=== PATIENT | female | born 1995 | race Caucasian/White ===

== ENCOUNTER 2022-12-27 13:36 | Outpatient (OUT) | payer OTHER, SELFPAY ==
--- NOTE | 2022-12-27 13:37 | US_ITS ---
The [address] [address] Patient Name: JAMES SCOTT MRN: [id number] date: 1995 Sex: F Assigned Patient Location: US Current Patient Location: US Accession/Order Number: [id number] Exam Date: 12/27/2022 14:10 Report Date: 12/27/2022 19:27 At the request of: INOCENCIO COLLADO Procedure: US OB transvaginal EXAMINATION: US OB transvaginal HISTORY: Positive test COMPARISON: No relevant comparison available. FINDINGS: GESTATIONAL SAC: Present and normal appearing. YOLK SAC: Present and normal appearing. POLE: Present and normal appearing. CARDIAC: Present. UTERUS: Normal size and appearance. OVARIES: Right: Normal. Left: Normal. CERVIX: 5.5 cm in length and closed. CUL-DE-SAC: Normal. OTHER: None. AGE BY LMP: 9 weeks 0 days RON BY LMP: 08/01/2023 AGE BY US CRL: 9 weeks 4 days RON BY US CRL: 07/28/2023 US/US OB transvaginal IMPRESSION: 1. Single live intrauterine . Electronically authenticated by: TAMAR GRANT Date: 12/27/2022 19:27
== END 2022-12-27 13:37 | disposition home or self-care (01) ==
LOC: US 13:36
PROVIDERS: Visit Provider Obstetrics & Gynecology
DX: N92.5 Other specified irregular menstruation (principal); Z33.1 Pregnant state, incidental
CPT/HCPCS: 76817

== ENCOUNTER 2023-01-07 11:33 | Outpatient (OUT) | payer OTHER, SELFPAY | END 2023-01-07 11:34 | disposition home or self-care (01) | LOC: LAB 11:34 | PROVIDERS: Visit Provider Obstetrics & Gynecology | DX: Z34.80 Encounter for supervision of other normal pregnancy, unspecified trimester (principal) | CPT/HCPCS: 36415 ==

== ENCOUNTER 2023-02-20 19:38 | Outpatient (REF) | payer OTHER, SELFPAY ==
[2023-02-25 17:07] LABS: Age Gdln ACOG Testing Note (.); HPV Aptima Negative (Negative); IGP, Aptima HPV, rfx 16/18,45 Note (.)
== END 2023-02-20 19:39 | disposition home or self-care (01) ==
LOC: LAB 19:38
PROVIDERS: Visit Provider Physician Assistant
DX: Z12.4 Encounter for screening for malignant neoplasm of cervix (principal)
CPT/HCPCS: 87624; G0145

== ENCOUNTER 2023-03-20 08:40 | Outpatient (OUT) | payer OTHER, SELFPAY ==
--- NOTE | 2023-03-20 08:43 | US_ITS ---
The [address] [address] Patient Name: JAMES SCOTT MRN: [id number] date: 1995 Sex: F Assigned Patient Location: US Current Patient Location: Accession/Order Number: [id number] Exam Date: 03/20/2023 08:43 Report Date: 03/20/2023 21:05 At the request of: INOCENCIO COLLADO Procedure: US OB cervical length EXAMINATION: US OB anatomy, US OB cervical length HISTORY: ANATOMY COMPARISON: No relevant comparison available. TECHNIQUE: Transabdominal sonographic examination was performed for obstetrical and evaluation. FINDINGS: Number: 1 Heart Rate: Present Amniotic Fluid Volume: Subjectively normal Placental Location: ANTERIOR with lower margin 5.7 cm from os Cervix Length: 5 cm , closed BIOMETRY: BPD: 5.4 cm 22 weeks 4 days ; 96% HC: 19.9 cm 22 weeks 1 days; 88% AC: 17.7 cm 22 weeks 4 days; 91% FL: 3.5 cm 21 weeks 1 days ; 53% EFW:469.4 grams; 95% FL/AC: 20.0 FL/BPD: 65.2 HC/AC: 1.1 GESTATIONAL AGE: Age by EDC: 20 weeks 6 days RON by EDC: 08/01/2023 Age by current US: 22 weeks 1 days RON by current US: 07/23/2023 US/US OB cervical length IMPRESSION: 1. Single live intrauterine with growth detailed above. 2. Estimated weight is at 95th percentile. Electronically authenticated by: TAMAR GRANT Date: 03/20/2023 21:05
--- NOTE | 2023-03-20 08:43 | US_ITS ---
[address] [address] Patient Name: JAMES SCOTT MRN: [id number] date: 1995 Sex: F Assigned Patient Location: US Current Patient Location: US Accession/Order Number: [id number] Exam Date: 03/20/2023 08:44 Report Date: 03/20/2023 21:05 At the request of: INOCENCIO COLLADO Procedure: US OB anatomy EXAMINATION: US OB anatomy, US OB cervical length HISTORY: ANATOMY COMPARISON: No relevant comparison available. TECHNIQUE: Transabdominal sonographic examination was performed for obstetrical and evaluation. FINDINGS: Number: 1 Heart Rate: Present Amniotic Fluid Volume: Subjectively normal Placental Location: ANTERIOR with lower margin 5.7 cm from os Cervix Length: 5 cm , closed BIOMETRY: BPD: 5.4 cm 22 weeks 4 days ; 96% HC: 19.9 cm 22 weeks 1 days; 88% AC: 17.7 cm 22 weeks 4 days; 91% FL: 3.5 cm 21 weeks 1 days ; 53% EFW:469.4 grams; 95% FL/AC: 20.0 FL/BPD: 65.2 HC/AC: 1.1 GESTATIONAL AGE: Age by EDC: 20 weeks 6 days RON by EDC: 08/01/2023 Age by current US: 22 weeks 1 days RON by current US: 07/23/2023 US/US OB anatomy IMPRESSION: 1. Single live intrauterine with growth detailed above. 2. Estimated weight is at 95th percentile. Electronically authenticated by: TAMAR GRANT Date: 03/20/2023 21:05
--- OUTSIDE RECORDS SUMMARY | 2023-07-10 09:53 | XMS_ITS | CCD ---
Author Name Unknown Address [address] [place] [address] Organization [facility] Care Team Providers Care Cargo Broker Name Role Phone REQUEST, DR NONE LISTED Primary Care Unavaila vasquez COLLADO, DR PAINTER Attending Unavailable HEAVEN, DR PAINTER Consulting Unavailable HEAVEN, DR PAINTER Admitting Unavailable AUSTIN VEGA Attending Unavailable INOCENCIO COLLADO Attending Unavailable A[place]IN VEGA Attending Unavailable INOCENCIO COLLADO Attending Unavailable Problems Problem Classification Problem Date [...] 21 to 29on 12-07-2021 . . Normal [facility] Comment on above: Performed By: #### [id number] #### [facility] [address] [address] [address] Alaina Gardner Age Gdln ACOG Testing 19- Normal [facility] Comment on above: Performed By: #### [id number] #### [facility] [address] [place], [place] [address] Dr. Alaina Gardner DIAGNOSIS: Comment [facility] Comment on above: Result Comment: NEGATIVE FOR INTRAEPITHE LIAL LESION OR MALIGNANCY. Performed By: #### [id number] #### [facility] [address] [place] [address] Dr. Alaina Gardner Methodology: Comment Normal [facility] Comment on above: Result Comment: This liquid based ThinPr ep(R) pap test was screened with the use of an image guided system. Performed By: #### [id number] #### [facility] [address] [place] [address] Dr. Alaina Gardner Note: Comment Normal [facility] Comment on above: Result Comment: The Pap smear is a scree gerardo test designed to aid in the detection of premalignant and malignant conditions of the uterine cervix. It is not a diagnostic procedure and should not be used as the sole means of detecting cervical cancer. Both false-positive and false-negative reports do occur. . Performed By: #### [id number] #### [facility] [address] [place] [address] Dr. Alaina Gardner Performed by: Comment Normal [facility] Comment on above: Result Comment: Jax Collier totechnologist (ASCP) Performed By: #### [id number] #### [facility] [address] [place] [address] Dr. Alaina Gardner Reflex Criteria: Comment Normal [facility] Comment on above: Result Comment: The HPV DNA reflex crite antoine were not met with this specimen result therefore, no HPV testing was performed. . Performed By: #### [id number] #### [facility] [address] [place] [address] Dr. Alaina Gardner Specimen adequacy: Comment Normal [facility] Comment on above: Result Comment: Satisfactory for evaluat ion. Endocervical and/or squamous metaplastic cells (endocervical component) are present. Performed By: #### [id number] #### [facility] [address] [place] [address] Dr. Alaina Gardner Encounters Encounter Date Encounter Type Care Provider Facility Start: 06-17-2023 End: 06-17-2023 ambulatory INOCENCIO HEAVEN Not Available Start: 06-03-2023 End: 06-03-2023 ambulatory AUSTIN VEGA Not Available Start: 05-16-2023 End: 05-16-2023 ambulatory INOCENCIO HEAVEN Not Available Start: 04-17-2023 End: 04-17-2023 ambulatory AUSTIN VEGA Not Available Start: 12-05-2021 End: 12-05-[address] NONE LISTED REQUEST Facility: Payers Date Payer Category Payer Medicaid [id number] 1995 Unknown [id number] [id number] 1995 Unknown [id number] [id number] [id number] 1995 Unknown [id number] 2.16.84 [id number] 1993 Unknown [id number] 1993 Unknown [id number] 1959 Unknown [id number] Summary Purpose Family History No Family History Records FoundNo Family History Records Found Advance Directives No Advanced Directives Records FoundNo Advanced Directives Records Found Additional Source Comments INFORMATION SOURCE (unrecogn ized section and content) DATE CREATED AUTHOR 12/23/2021 [facility] DATE CREATED AUTHOR AUTHORAndie SPENCER 06/18/2023 [facility] EPIC FOR RECORDS PERTAINING [...] BE BASED ON THE PRIMARY CLINICAL RECORDS. [employer] provides no warranty or guarantee of the accuracy or completeness of information in this document.
== END 2023-03-20 08:41 | disposition home or self-care (01) ==
LOC: US 08:41
PROVIDERS: Visit Provider Obstetrics & Gynecology
DX: Z34.92 Encounter for supervision of normal pregnancy, unspecified, second trimester (principal)
CPT/HCPCS: 76805; 76817

== ENCOUNTER 2023-06-21 07:33 | Outpatient (OUT) | payer OTHER, SELFPAY ==
--- NOTE | 2023-06-21 | US_ITS ---
[address] [address] Patient Name: JAMES SCOTT MRN: [id number] date: 1995 Sex: F Assigned Patient Location: [facility] Current Patient Location: INF Accession/Order Number: [id number] Exam Date: 06/21/2023 10:40 Report Date: 06/21/2023 11:57 At the request of: INOCENCIO COLLADO Procedure: US OB growth EXAMINATION: US OB growth HISTORY: EXCESSIVE GROWTH O36.60X0 COMPARISON: No relevant comparison available. FINDINGS: Heart Rate: 132.0 bpm Amniotic Fluid Volume: 20.2 cm Number: 1.0 Position: Cephalic presentation, longitudinal lie Maximum Vertical Pocket: 9.2 cm cm 3.3 cm cm 3.7 cm cm 4.0 cm cm BIOMETRY: BPD: 9.3 cm cm; 37 weeks 6 days; >97% HC: 34.9 cmcm; 40 weeks 4 days , >97% AC: 33.8 cm cm; 37 weeks 5 days, > 97% FL: 6.6 cm cm; 34 weeks 1 days; 38.8 % % EFW: 3135.2 grams, 6 lbs. 15 oz., >97% FL/AC: 19.6 FL/BPD: 71.0 HC/AC: 1.0 GESTATIONAL AGE: Age by EDC: 34 weeks 1 days RON by EDC: 08/01/2023 Age by US: 37 weeks 4 days RON by US: 07/08/2023 US/US OB growth IMPRESSION: Large for gestational age Electronically authenticated by: BINA CAVAZOS Date: 06/21/2023 11:57
--- OUTSIDE RECORDS SUMMARY | 2023-06-21 07:36 | XMS_ITS | CCD ---
Author Name Unknown Address [address] [place] [address] [address] [place] [address] Organization [facility] Care Team Providers Care Delivery Clerk Name Role Phone REQUEST, DR NONE LISTED Primary Care Unavaila vasquez COLLADO, DR PAINTER Attending Unavailable HEAVEN, DR PAINTER Consulting Unavailable HEAVEN, DR PAINTER Admitting Unavailable AUSTIN VEGA Attending Unavailable HEAVENINOCENCIO MARTINEZ Attending Unavailable [place] Attending Unavailable HEAVENINOCENCIO MARTINEZ Attending Unavailable Problems Problem Classification Problem Date Documented Date Episodic/Chronic Immunizations and screening for infectious disease (1 source) Encounter for screening for human papillomavirus (HPV); Translations: [ENC SCREENING HUMAN PAPILLOMAVIRUS] Onset: 12-06-2021 Episodic Other screening for suspected conditions (not mental disorders or infectious disease) (4 sources) Encounter for screening for malignant neoplasm of cervix; Translations: [ENC SCREENING MALIG NEOPLASM CERV] Onset: 12-05-2021 Episodic Results Test Name Value Interpretation Reference Range Facil ity PAP ACOG PANEL 2: 21 to 29on 12-07-2021 . . Normal [facility] Comment on above: Performed By: #### [id number] #### [facility] [address] [address] [address] Alaina Gardner Age Gdln ACOG Testing 21-29 Normal [facility] Comment on above: Performed By: #### [id number] #### [facility] [address] [address] [address] Alaina Gardner DIAGNOSIS: Comment [facility] Comment on above: Result Comment: NEGATIVE FOR INTRAEPITHE LIAL LESION OR MALIGNANCY. Performed By: #### [id number] #### [facility] [address] [address] [address] Alaina Gardner Methodology: Comment Normal [facility] Comment on above: Result Comment: This liquid based ThinPr ep(R) pap test was screened with the use of an image guided system. Performed By: #### [id number] #### [facility] [address] [place] [address] Dr. Alaina Gardner Note: Comment Normal [facility] Comment on above: Result Comment: The Pap smear is a scree gerardo test designed to aid in the detection of premalignant and malignant conditions of the uterine cervix. It is not a diagnostic procedure and should not be used as the sole means of detecting cervical cancer. Both false-positive and false-negative reports do occur. . Performed By: #### [id number] #### [facility] [address] [place] [address] Dr. Alaina Gardner Performed by: Comment Normal [facility] Comment on above: Result Comment: Yoshi Lepe totechnologist (ASCP) Performed By: #### [id number] #### [facility] [address] [place] [address] Dr. Alaina Gardner Reflex Criteria: Comment Normal [facility] Comment on above: Result Comment: The HPV DNA reflex crite antoine were not met with this specimen result therefore, no HPV testing was performed. . Performed By: #### [id number] #### [facility] [address] [place] [address] Dr. Alaina Gardner Specimen adequacy: Comment Normal [facility] Comment on above: Result Comment: Satisfactory for evaluat ion. Endocervical and/or squamous metaplastic cells (endocervical component) are present. Performed By: #### [id number] #### [facility] [address] [place] [address] Dr. Alaina Gardner Encounters Encounter Date Encounter Type Care Provider Facility Start: 06-17-2023 End: 06-17-2023 ambulatory INOCENCIO COLLADO Not Available Start: 06-03-2023 End: 06-03-2023 ambulatory AUSTIN VEGA Not Available Start: 05-16-2023 End: 05-16-2023 ambulatory INOCENCIO HEAVEN Not Available Start: 04-17-2023 End: 04-17-2023 ambulatory AUSTIN VEGA Not Available Start: 12-05-2021 End: 12-05-[address] NONE LISTED REQUEST Facility: Payers Date Payer Category Payer Medicaid [id number] 1995 Unknown [id number] 2.16.84 [id number] 1995 Unknown [id number] 2.16.84 [id number] 1995 Unknown [id number] 2.16.84 [id number] 1995 Unknown [id number] [id number] 1995 Unknown [id number] 1959 Unknown [id number] Summary Purpose Family History No Family History Records FoundNo Family History Records Found Advance Directives No Advanced Directives Records FoundNo Advanced Directives Records Found Additional Source Comments INFORMATION SOURCE (unrecogn ized section and content) DATE CREATED AUTHOR 12/23/2021 [facility] DATE CREATED AUTHOR AUTHOR'S JAEL SPENCER 06/18/2023 [facility] EPIC FOR RECORDS PERTAINING TO PATIENTS WHO ARE OR HAVE BEEN ENROLLED IN A CHEMICAL DEPENDENCY/SUBSTANCEABUSE PROGRAM, SOME INFORMATION MAY BE OMITTED. This clinical summary was aggregated from multiple sources. Caution should be exercised in using it in the provision of clinical care. This summary normalizes information from multiple sources, and as a consequence, information in this document may materially change the coding, format and clinical context of patient data. In addition, data may be omitted in some cases. CLINICAL DECISIONS SHOULD BE BASED ON THE PRIMARY CLINICAL RECORDS. [employer] provides no warranty or guarantee of the accuracy or completeness of information in this document.
[2023-06-21] MEDS: RHO(D) IMMUNE GLOBULIN 1,500 UNIT SYRINGE 1500 UNIT IM (11:18)
[2023-06-21 11:25] VITALS: BP 118/77; PULSE 80; RESP 16; TEMP 36.1; O2SAT 99
--- NOTE | 2023-06-21 11:29 | PC.NURSE ---
1100: Pt. to [facility] amb. Seated in chair. Blood type verified. VSS. Denies c/o adverse reaction from past injection of rhogam. Pt. medicated with Rhophylac IM as ordered to right dorsal gluteal area. No bleeding to site. Pt. tolerated with no c/o pain. Bandaid placed over injection site prophylactically. 1125: Pt. without s&s of reaction. No bleeding to injection site. D/c'd amb. to home.
== END 2023-06-21 07:34 | disposition home or self-care (01) ==
LOC: NOMS 07:34 → INF 09:33
PROVIDERS: Visit Provider Obstetrics & Gynecology
DX: O26.893 Other specified pregnancy related conditions, third trimester (principal); Z67.91 Unspecified blood type, Rh negative; O36.60X0 Maternal care for excessive fetal growth, unspecified trimester, not applicable or unspecified; Z3A.34 34 weeks gestation of pregnancy
CPT/HCPCS: 36415; 76816; 86850; 86900; 86901; 96372; J2790

== ENCOUNTER 2023-07-02 12:53 | Inpatient (IN) | payer OTHER, SELFPAY ==
[2023-07-02] VITALS (15 sets, daily range): BP systolic 93–138; BP diastolic 52–76; PULSE 73–95; RESP 16–18; TEMP 36.2–37.3
--- OUTSIDE RECORDS SUMMARY | 2023-07-02 12:59 | XMS_ITS | CCD ---
Author Name Unknown Address [address] [place] [address] [address] [place] [address] Organization [facility] Care Team Providers Care Blueprinting Machine Operator Name Role Phone REQUEST, DR NONE LISTED Primary Care Unavaila vasquez COLLADO, DR PAINTER Attending Unavailable HEAVEN, DR PAINTER Consulting Unavailable HEAVEN, DR PAINTER Admitting Unavailable [place] Attending Unavailable EHAVENINOCENCIO MARTINEZ Attending Unavailable [place] Attending Unavailable [...] 21 to 29on 12-07-2021 . . Normal [facility] Comment on above: Performed By: #### [id number] #### [facility] [address] [address] [address] Alaina Gardner Age Gdln ACOG Testing 21-29 Normal [facility] Comment on above: Performed By: #### [id number] #### [facility] [address] [address] [address] Alaina Gardner DIAGNOSIS: Comment [facility] Comment on above: Result Comment: NEGATIVE FOR INTRAEPITHE LIAL LESION OR MALIGNANCY. Performed By: #### [id number] #### [facility] [address] [address] [address] Alaina Gardner Methodology: Comment Normal [facility] Comment on above: Result Comment: This liquid based ThinPr ep(R) pap test was screened with the use of an image guided system. Performed By: #### [id number] #### [facility] [address] [place] [address] Dr. Alaina Gardner Note: Comment Normal [facility] Comment on above: Result Comment: The Pap smear is a scree gerardo test designed to aid in the detection of premalignant and malignant conditions of the uterine cervix. It is not a diagnostic procedure and should not be used as the sole means of detecting cervical cancer. Both false-positive and false-negative reports do occur. . Performed By: #### [id number] #### [facility] [address] [place] [address] Dr. Alaina Gardner Performed by: Comment Normal [facility] Comment on above: Result Comment: Yoshi Lepe totechnologist (ASCP) Performed By: #### [id number] #### [facility] [address] [place] [address] Dr. Alaina Gardner Reflex Criteria: Comment Normal [facility] Comment on above: Result Comment: The HPV DNA reflex crite antoine were not met with this specimen result therefore, no HPV testing was performed. . Performed By: #### [id number] #### [facility] [address] [place] [address] Dr. Alaina Gardner Specimen adequacy: Comment Normal [facility] Comment on above: Result Comment: Satisfactory for evaluat ion. Endocervical and/or squamous metaplastic cells (endocervical component) are present. Performed By: #### [id number] #### [facility] [address] [place] [address] Dr. Alaina Gardner Encounters Encounter Date Encounter Type Care Provider Facility Start: 06-17-2023 End: 06-17-2023 ambulatory INOCENCIO COLLADO Not Available Start: 06-03-2023 End: 06-03-2023 ambulatory AUSTIN VEGA Not Available Start: 05-16-2023 End: 05-16-2023 ambulatory INOCENCIO HEAVEN Not Available Start: 04-17-2023 End: 04-17-2023 ambulatory AUSTIN VEGA Not Available Start: 12-05-2021 End: 12-05-[address] NONE LISTED REQUEST Facility: Payers Date Payer Category Payer Medicaid [id number] 1995 Unknown [id number] 2.16.84 [id number] 1995 Unknown [id number] 2.16.84 [id number] 1995 Unknown [id number] 2.16.84 [id number] 1995 Unknown [id number] 2.16.840 .[id number] 1995 Unknown [id number] 2.16.840 .[id number] 1959 Unknown [id number] Summary Purpose Family History No Family History Records FoundNo Family History Records Found Advance Directives No Advanced Directives Records FoundNo Advanced Directives Records Found Additional Source Comments INFORMATION SOURCE (unrecogn ized section and content) DATE CREATED AUTHOR 12/23/2021 [facility] DATE CREATED AUTHOR AUTHOR'S JAEL SPENCER 06/18/2023 [facility] EPIC FOR RECORDS PERTAINING TO [...] BE BASED ON THE PRIMARY CLINICAL RECORDS. [employer] provides no warranty or guarantee of the accuracy or completeness of information in this document.
[2023-07-02 13:38] LABS: Amnisure POSITIVE (NEGATIVE)
[2023-07-02 13:57] LABS: Bilirubin Urine SMALL (NEGATIVE); Blood Urine NEGATIVE (NEGATIVE); Clarity Urine CLEAR (CLEAR); Color Urine DK. BROWN (YELLOW); Glucose Urine UA NEGATIVE (NEGATIVE); Ketones Urine 15 mg/dL (NEGATIVE); Leukocyte Esterase Urine NEGATIVE (NEGATIVE); Nitrite Urine NEGATIVE (NEGATIVE); Protein Urine 100 mg/dL (NEG/TRACE); pH Urine 7.5 (5.0-9.0)
[2023-07-02 13:59] LABS: Urine Microscopic Indicated YES
[2023-07-02 14:08] LABS: Bacteria Urine SMALL #/HPF (NONE SEEN); Cast Seen? NONE SEEN #/LPF (NONE SEEN); Crystals Seen? None Seen #/HPF (None Seen); Mucus Urine SMALL (NONE SEEN); RBC Urine 0-2 #/HPF (0-2); Squamous Epithelial Cell Urine FEW #/LPF (NONE/RARE); Urine Culture Indicated YES; WBC Urine NONE SEEN #/HPF (NONE SEEN)
[2023-07-02] MEDS: OXYTOCIN/0.9 % SODIUM CHLORIDE 10 UNITS/500 ML PLAST..BAG 6 UNIT IV (15:00)
[2023-07-02 15:06] LABS: Hematocrit 31.8 % (36.0-48.0); Hemoglobin 10.3 g/dL (12.0-16.0); Mean Corpuscular HGB Conc 32.4 g/dL (29.9-35.2); Mean Corpuscular Hemoglobin 27.7 pg (26.7-34.0); Mean Corpuscular Volume 85.5 fL (81.0-99.0); Mean Platelet Volume 10.5 fL (9.5-13.5); Platelet Count 366 10^3/uL (150-450); Red Blood Count 3.72 10^6/uL (4.20-5.40); Red Cell Distribution Width 13.1 % (11.0-15.0); White Blood Count 12.9 10^3/uL (4.0-11.0)
[2023-07-02] MEDS: 0.9 % SODIUM CHLORIDE 1,000 ML 125 ML IV (15:11)
[2023-07-02] MEDS: AMPICILLIN SODIUM 2,000 MG in 0.9 % SODIUM CHLORIDE 100 ML 200 MG IV (15:14)
[2023-07-02 15:24] LABS: Amphetamine Screen Urine NEGATIVE (NEGATIVE); Barbiturates Screen Urine NEGATIVE (NEGATIVE); Benzodiazepines Screen Urine NEGATIVE (NEGATIVE); Buprenorphine Screen Urine NEGATIVE (NEGATIVE); Cannabinoid Screen Urine POSITIVE (NEGATIVE); Cocaine Screen Urine NEGATIVE (NEGATIVE); Methadone Screen Urine NEGATIVE (NEGATIVE); Methamphetamines Screen Urine NEGATIVE (NEGATIVE); Opiate Screen Urine NEGATIVE (NEGATIVE); Oxycodone Screen Urine NEGATIVE (NEGATIVE); Phencyclidine Screen Urine NEGATIVE (NEGATIVE); Tricyclic Antidepressant Urine NEGATIVE (NEGATIVE)
[2023-07-02] MEDS: AMPICILLIN SODIUM 1,000 MG in 0.9 % SODIUM CHLORIDE 50 ML 100 MG IV ×2 (19:18→23:02)
[2023-07-03] VITALS (57 sets, daily range): BP systolic 92–124; BP diastolic 48–75; PULSE 70–103; RESP 12–30; TEMP 36.5–37.3; O2SAT 99–100
[2023-07-03] MEDS: 0.9 % SODIUM CHLORIDE 1,000 ML 125 ML IV ×2 (00:10→09:04)
[2023-07-03] MEDS: AMPICILLIN SODIUM 1,000 MG in 0.9 % SODIUM CHLORIDE 50 ML 100 MG IV ×2 (02:58→06:53)
[2023-07-03] MEDS: OXYTOCIN/0.9 % SODIUM CHLORIDE 10 UNITS/500 ML PLAST..BAG 6 UNIT IV (07:14)
[2023-07-03] MEDS: 0.9 % SODIUM CHLORIDE 1,000 ML 1000 ML IV (11:35)
[2023-07-03] MEDS: CEFAZOLIN SODIUM/DEXTROSE,ISO 2 GM/50 ML PIGGYBACK IV ×2 (11:38→17:30)
[2023-07-03] MEDS: CITRIC ACID/SODIUM CITRATE 30 ML SOLUTION ORACIT SHOHL'S SOLN PO (11:39)
[2023-07-03] MEDS: FAMOTIDINE/PF 20 MG/2 ML VIAL IV (11:40)
[2023-07-03] MEDS: METOCLOPRAMIDE HCL 10 MG/2 ML VIAL IVP (11:40)
--- NOTE | 2023-07-03 11:53 | P.OBHP_ITS ---
OB - H&P: HPI History of Present Illness Chief complaint: OBS DELIVERY : 2 Para: 1 Date of last menstrual period: 10/25/22 Gestational age based on last menstrual period: 36wls Narrative: 27 at 35 6/7wks presented with srom, pt was started on pitocin, and iv abx, pt failed to dilate or descend, failure to progress and was unchanged from initial sve after 21hrs of pitocin History of Present Dating criteria: LMP confirmed by 1st trimester US care: good care Ultrasounds: normal 1st trimester US Labs Blood type: B (-) negative Rubella: immune RPR/VDLR: nonreactive GBS status: unknown HBsAG: negative Review of Systems ROS Status of ROS: 10 or more systems reviewed and unremarkable except as noted in history and below Meds Home Medications and Allergies Allergies Allergy/AdvReac Type Severity Reaction Status Date / Time No Known Drug Allergies Allergy Verified 07/02/23 14:01 Exam Constitutional Vital Signs, click to edit/add: Last Vital Signs Temp 98.1 F 07/03/23 11:12 Pulse 94 H 07/03/23 11:13 Resp 18 07/03/23 06:49 BP 105/52 07/03/23 11:13 Documenting provider has reviewed patient's vital signs: yes Common normals: no apparent distress Respiratory Common normals: clear to auscultation bilaterally Cardio Common normals: regular rate and regular rhythm GI Common normals: Normal to inspection, nondistended, normoactive bowel sounds present Extremity Common normals: no calf tenderness Results Labs Labs: Short CBC 07/02/23 Range/Units 14:45 WBC 12.9 H (4.0-11.0) 10^3/uL Hgb 10.3 L (12.0-16.0) g/dL Hct 31.8 L (36.0-48.0) % Plt Count 366 (150-450) 10^3/uL Urine 07/02/23 Range/Units 13:20 Urine Color Dk. brown (YELLOW) Urine Clarity Clear (CLEAR) Urine pH 7.5 (5.0-9.0) Ur Specific [place] 1.020 (1.005-1.025) Urine Protein 100 A (NEG/TRACE) mg/dL Urine Glucose (UA) Negative (NEGATIVE) mg/dL OB - A/P Assessment and Plan (1) Intrauterine : (2) SROM (spontaneous rupture of membranes): Plan iup at 36wks, srom-failure to augment, discussed options with patient, consent obtained, mmc reviewed procedure reviewed
[2023-07-03] MEDS: LACTATED RINGER'S SOLUTION 1,000 ML 50 ML IV (12:15)
--- NOTE | 2023-07-03 12:58 | P.ON_ITS ---
Brief Operative Note Date of procedure: 07/03/23 Pre-op diagnosis: iup at 36wks, srom Post-op diagnosis: same as pre-op Procedure: NAME OF PROCEDURE: [ section ] PROCEDURE: Patient was taken back to the Operating Room where she was given a spinal anesthesia with Duramorph without difficulty. She was prepped and draped in the normal sterile fashion. A Pfannenstiel skin incision was then made 2 cm above the symphysis pubis and carried down to underlying rectus fascia using a Bovie. The fascia was incised in the midline and extended laterally using Ahuja scissors. Two Donna clamps were placed on the superior aspect of the fascia and dissected off the underlying rectus muscles. The same was performed on the inferior aspect as well. The muscles were then in the midline. Peritoneum was identified and entered bluntly. The peritoneum was then extended superiorly and inferiorly with good visualization of the bladder. The bladder blade was inserted. A low transverse incision was made on the patient's uterus and extended laterally digitally. The was then delivered atraumatically after the bladder blade was removed in the cephalic position. The cord was clamped and cut. Cord blood was obtained. The was handed off to awaiting team. The patient's placenta was spontaneously delivered. The uterus was then exteriorized. The uterus was cleared of all clots and debris. The bladder blade was reinserted. The patient's uterine incision was closed using #0 Vicryl in a running lock fashion. Excellent hemostasis was assured. The uterus was then returned to the patient's abdomen. The patient's abdomen was copiously irrigated using warm saline. Peritoneal gutters were cleared of all clots and debris. Again excellent hemostasis was assured. The patient's peritoneum was closed using 3-0 Vicryl in a running fashion. The patient's fascia was closed using #0 Vicryl in a running fashion. The patient's skin was closed using 4-0 Vicryl subcuticularly. The patient tolerated the procedure well. Sponge, lap, and needle counts were correct x2. The patient was taken to the Recovery Room in stable condition. Anesthesia: spinal Surgeon: Rodrick Scales Manager Call Center: Anuradha Wang Estimated blood loss (mL): 575 Pathology: none sent Condition: stable Disposition: floor Urinary Catheter Management Urinary Catheter Management Urethral: Cath placed during this visit: yes Urethral indwelling: No Insertion date: 07/03/23 Insertion time: 12:30
--- NOTE | 2023-07-03 13:00 | P.OBPRC_ITS ---
Procedure Pre-op/Post-op diagnoses: Pre-Op/Post-Op Diagnoses Operation Date: 07/03/23 11:30 <No data on this case meets the specified criteria> Procedure: Procedures Operation Date: 07/03/23 11:30 Actual Procedure Side Surgeon p Not Applicable Rodrick Scales DO Vice President Of Contracts: Anuradha Wang Estimated blood loss (mL): 200 Disposition: floor Anesthesia type: Spinal
[2023-07-03] MEDS: BUPIVACAINE LIPOSOME/PF 266 MG/13.3 ML VIAL INJ (13:10)
[2023-07-03] MEDS: BUPIVACAINE HCL 0.5% PF 50 MG/10 ML VIAL 15 ML INJ (13:10)
[2023-07-03] MEDS: 0.9 % SODIUM CHLORIDE 10 ML VIAL 4 ML INJ (13:10)
[2023-07-03] MEDS: OXYTOCIN/0.9 % SODIUM CHLORIDE 20 UNITS/1,000 ML PLAST..BAG 125 UNIT IV (13:48)
[2023-07-03] MEDS: ACETAMINOPHEN 500 MG TABLET 1000 MG PO (18:21)
[2023-07-03] MEDS: KETOROLAC TROMETHAMINE 30 MG/ML VIAL IVP (18:21)
[2023-07-04] VITALS (7 sets, daily range): BP systolic 97–118; BP diastolic 52–73; PULSE 85–88; RESP 16–18; TEMP 36.4–36.8
[2023-07-04] MEDS: KETOROLAC TROMETHAMINE 30 MG/ML VIAL IVP (00:35)
[2023-07-04] MEDS: ENOXAPARIN SODIUM 40 MG/0.4 ML SYRINGE SUBQ ×2 (00:35→22:56)
[2023-07-04] MEDS: ACETAMINOPHEN 500 MG TABLET 1000 MG PO ×4 (00:36→18:35)
[2023-07-04 06:11] LABS: Basophils Percent Auto 0.2 % (0.2-2.0); Eosinophils Percent Auto 0.3 % (0.9-7.0); Hematocrit 28.9 % (36.0-48.0); Hemoglobin 9.1 g/dL (12.0-16.0); Immature Granulocytes Abs Auto 0.09 10^3/uL (0.00-0.03); Immature Granulocytes Pct Auto 0.6 % (0.0-0.5); Lymphocytes Absolute Auto 2.1 10^3/uL (1.2-3.8); Lymphocytes Percent Auto 15.2 % (20.5-60.0); Mean Corpuscular HGB Conc 31.5 g/dL (29.9-35.2); Mean Corpuscular Hemoglobin 27.6 pg (26.7-34.0); Mean Corpuscular Volume 87.6 fL (81.0-99.0); Mean Platelet Volume 10.7 fL (9.5-13.5); Monocytes Percent Auto 7.1 % (1.7-12.0); Neutrophils Absolute Auto 10.7 10^3/uL (1.4-6.5); Neutrophils Percent Auto 76.6 % (43.0-75.0); Platelet Count 316 10^3/uL (150-450); Red Cell Distribution Width 13.4 % (11.0-15.0)
--- NOTE | 2023-07-04 07:22 | PM.OBPN ---
OB - PN: Subj Subjective Patient comments: no complaints [place] status: doing well [place] feeding status: exclusively Exam Constitutional Vital Signs, click to edit/add: Last Vital Signs Temp 98.0 F 07/04/23 04:54 Pulse 72 07/03/23 20:31 Resp 16 07/03/23 18:27 BP 118/73 07/04/23 04:54 Pulse Ox 100 07/03/23 17:30 O2 Del Method Room Air 07/04/23 04:54 Documenting provider has reviewed patient's vital signs: yes Common normals: no apparent distress General appearance: cooperative, comfortable, well kempt and well developed HENMT Common normals: normocephalic Eye Common normals: EOMs intact bilaterally General eye: normal appearance of both eyes Alignment: alignment normal Neck & C-Spine Common normals: full ROM General: normal visual inspection Lymph Lymphatic: no lymphadenopathy noted Respiratory Common normals: normal respiratory effort Effort & inspection: able to speak in complete sentences Auscultation: clear to auscultation bilaterally Cardio Common normals: regular rate and regular rhythm Rate: regular rate Rhythm: regular rhythm GI Common normals: Normal to inspection, nondistended, normoactive bowel sounds present and soft to palpation Auscultation: normoactive bowel sounds Palpation: soft Common normals: no CVA tenderness Back & Pelvis Common normals: no CVA tenderness Extremity Common normals: normal to inspection and full ROM Neuro Common normals: oriented x3 Psych Attitude: calm Thought process: normal thought process Results Labs Labs: Short CBC 07/04/23 Range/Units 05:56 WBC 14.0 H (4.0-11.0) 10^3/uL Hgb 9.1 L (12.0-16.0) g/dL Hct 28.9 L (36.0-48.0) % Plt Count 316 (150-450) 10^3/uL Urinary Catheter Management Urinary Catheter Management Urethral: Cath placed during this visit: yes Urethral indwelling: No Insertion date: 07/03/23 Insertion time: 12:30 OB - PN: A/P Assessment and Plan (1) Intrauterine : (2) SROM (spontaneous rupture of membranes): Plan - day: 1 Plan: routine postop care Comment: patient c/o itching, small reddened rash across abdomen above incisional dressing. Benadryl ordered and requested per patient Time Spent with Patient Time: Total time spent is greater than 50% in coordination of care (as documented) at patient's floor/unit and/or counseling patient: Total time spent with greater than 50% in coordination of care (as documented) at patient's floor/unit and/or counseling patient: less than 15 minutes
[2023-07-04] MEDS: IBUPROFEN 400 MG TABLET 800 MG PO ×2 (08:19→16:48)
[2023-07-04] MEDS: DOCUSATE SODIUM 100 MG CAPSULE PO ×2 (08:19→22:57)
[2023-07-05] MEDS: IBUPROFEN 400 MG TABLET 800 MG PO (02:36)
[2023-07-05] MEDS: ACETAMINOPHEN 500 MG TABLET 1000 MG PO (02:37)
[2023-07-05 08:30] VITALS: BP 139/58; PULSE 101; RESP 16; TEMP 36.7
[2023-07-05 08:31] VITALS: BP 139/58; PULSE 101
[2023-07-05] MEDS: DOCUSATE SODIUM 100 MG CAPSULE PO (08:34)
--- NOTE | 2023-07-05 08:36 | PC.NURSE ---
LC into dicuss feeding plan, pumping and easy milk fo rbaby. Pt states I am working the plan States baby is doing well with latching and continues to hear swallows. Plans to follow up 07/10/2023 at 1245 as planned with LC.
--- NOTE | 2023-07-05 09:03 | PM.OBPN ---
OB - PN: Subj Subjective Patient comments: no complaints and pain well controlled [place] status: doing well Exam Constitutional Vital Signs, click to edit/add: Last Vital Signs Temp 97.5 F L 07/04/23 23:52 Pulse 101 H 07/05/23 08:31 Resp 18 07/04/23 23:55 BP 139/58 07/05/23 08:31 Pulse Ox 100 07/03/23 17:30 O2 Del Method Room Air 07/04/23 23:55 Documenting provider has reviewed patient's vital signs: yes Common normals: no apparent distress Respiratory Common normals: normal respiratory effort and clear to auscultation bilaterally Cardio Common normals: regular rate and regular rhythm GI Common normals: Normal to inspection, nondistended, normoactive bowel sounds present Extremity Common normals: no clubbing, cyanosis or edema and no calf tenderness Urinary Catheter Management Urinary Catheter Management Urethral: Cath placed during this visit: yes Urethral indwelling: No Insertion date: 07/03/23 Insertion time: 12:30 OB - PN: A/P Assessment and Plan (1) Intrauterine : (2) SROM (spontaneous rupture of membranes): Plan - day: 1 Plan: routine postop care, discharge home and other (fu 1wk) Time Spent with Patient Time: Total time spent is greater than 50% in coordination of care (as documented) at patient's floor/unit and/or counseling patient: Total time spent with greater than 50% in coordination of care (as documented) at patient's floor/unit and/or counseling patient: less than 15 minutes
--- NOTE | 2023-07-05 14:13 | SWNOTE1 ---
IMAN consulted due to positive THC drug screen, anxiety, and 1 year sober of alcohol. Pt and baby are doing well. Pt's mother in room as well. Pt has everything she needs at home for baby. She has a 2 1/2 year old son as well. Pt is breast feeding and voiced it is going well. Pt has good support at home with family. Father of baby is in the home as well. Pt did use marijuana and she does not plan on continuing use when she is at home. She does not have medical marijuana card. Pt was using marijuana for anxiety, nausea, and vomiting. Pt does go to counseling. She goes to meets in [place] and Bindu is the head of [facility]. This is where she attends counseling. 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 She attends AA meetings as well. Pt and pt's mother appropriate with baby. IMAN let pt know due to [employer] Law SW is mandated reported and has to make report to CPS. IMAN advised if they open a case they will contact pt directly. Pt voiced understanding, no questions. IMAN filled out HIPPA form and sent to [facility]. IMAN made referral to [facility] CPS.
[2023-07-06 22:06] LABS: Cannabinoid Positive (.); Carboxy THC Conf, MS, UR >750 ng/mL (Cutoff=10)
--- NOTE | 2023-07-15 | DS_ITS ---
DISCHARGE DATE: 07/15/2023 PRIMARY DIAGNOSES: 1. Intrauterine at 36 weeks. 2. Spontaneous rupture of membranes. PROCEDURE: section. HOSPITAL COURSE: As expected. Please see chart for full details. LABORATORY DATA: Please see chart. COMPLICATIONS: None. DISCHARGE CONDITION: Stable. CONSULTATION: Anesthesia. DISCHARGE INSTRUCTIONS: 1. Diet: Regular. 2. Medications: a. Percocet 5/325 one to two p.o. every 4-6 hours p.r.n. pain. b. Motrin 800 one p.o. every 8 hours p.r.n. pain. 3. Followup in one week. Restrictions: Pelvic rest for 6 weeks. No heavy lifting. May drive when pain free and no longer on narcotics. MTDD
== END 2023-07-05 11:30 | disposition home or self-care (01) | DRG 540 ==
PROVIDERS: Admitting Provider Obstetrics & Gynecology; Visit Provider Obstetrics & Gynecology
PROC: 10D00Z1 Extraction of Products of Conception, Low, Open Approach (ICD-10-PCS; CPT 59514; principal; 2023-07-03 11:30)
DX: O42.913 Preterm premature rupture of membranes, unspecified as to length of time between rupture and onset of labor, third trimester (principal); Z37.0 Single live birth; O32.4XX0 Maternal care for high head at term, not applicable or unspecified; O62.0 Primary inadequate contractions; Z3A.36 36 weeks gestation of pregnancy; O99.324 Drug use complicating childbirth; F12.90 Cannabis use, unspecified, uncomplicated; O26.893 Other specified pregnancy related conditions, third trimester; Z67.21 Type B blood, Rh negative
CPT/HCPCS: 36415; 59050; 80307; 80349; 81001; 84112; 85025; 85027; 86850; 86900; 86901; 87086; 94667; 94668; 96365; 96366; 96368; 96372; 96375; 96376; J0131; J0290; J0665; J0690; J1100; J1650; J1885; J2274; J2371; J2405; J2590; J2765

== ENCOUNTER 2024-12-09 15:03 | Outpatient (REF) | payer OTHER, SELFPAY ==
--- OUTSIDE RECORDS SUMMARY | 2024-06-25 05:15 | XMS_ITS ---
Author Organization [facility] vices Address [address] [place] [phone] Care Team Providers Care Remote Inpatient Coder Name Role Phone Renae Watters Unavailable [phone] REASON FOR VISIT Rest #31-OB #27-ML Social History Sex Assigned At : Social History Observation Description Sex Assigned At Female Encounters Encounter Location Date Provider Diagnosis [facility] [address] [place] [address] [phone] 06/25/2024 Renae Watters Plan Of Treatment Next Appt Details Provider Name:Renae epstein, 01/26/2025 09:30:00 AM, [address] [place] [address], [phone], Progress Notes * Angi SCOTTDOB: [birth year] (29 yo F)Acc No.[id number]:06/25/2024 Patient: Shayy ESTRADAAngi Provider: Malena Watters DDS :1995 A ge:29 Y S ex:Female Date:06/25/2024 Address:[address] [place] [id number] Check In:08:57 AM EST Subjective: * Chief Complaints: * 1 . Rest #31-OB #27-ML. * Medical History: Objective: * Vitals: Assessment: Plan: * Treatment: * Billing Information: * Visit Code: * Procedure Codes: * Electronic signature of Madisyn Watters DDS on 12/09/2024 at 03:07 PM EDT Sign off status: Pending * Provider: Malena Watters DDS Date: 0 06/25/2024 Generated for Saida nobles/Eduard/Sherie on: 0 12/09/2024 03:07 PM EDT
--- OUTSIDE RECORDS SUMMARY | 2024-11-05 10:30 | XMS_ITS | Encounter Summary ---
Author Organization [facility] tem Address [id number] [address] [place] [address] Care Team Providers Care Weather Stripper Name Role Phone Nemo Benjamin APRN-ARIANNA Primary Care Provide r Reason for Visit * Reason Comments Annual Exam Encounter Details Date Type Department Care Team (Late st Contact Info) Description 11/05/2024 10:30 AM EDT Office Visit [facility] [address] [place] [id number] Nemo Benjamin APRN-CNP [address] [place] [address] Wellness examination (Primary Dx); Anxiety; Gastroesophageal reflux disease, unspecified whether esophagitis present; Migraine without aura and without status migrainosus, not intractable; Iron deficiency Social History Tobacco Use Types Packs/Day Years Used Date Smoking Tobacco: Every Day Cigarettes 0.5 6 Smokeless Tobacco: Never Comments:Smokes 5 cigarettes a day Alcohol Use Standard Drinks/Week Comments Not Currently 0 (1 standard drink = 0.6 oz pur e alcohol) former Social Connection and Isolat ion Panel [NHANES] Answer Date Recorded In a typical week, how many times do you talk on the phone with family, friends, or neighbors? More than three times a week 06/12/2021 How often do you get togethe r with friends or relatives? Once a week 06/12/2021 How often do you attend [facility] or yarsanism services? Patient declined 06/12/2021 Do you belong to any clubs o r organizations such as faith groups, unions, fraternal or athletic groups, or school groups? No 06/12/2021 How often do you attend meet ings of the clubs or organizations you belong to? Patient declined 06/12/2021 Are you , , di vorced, , never , or living with a partner? Living with partner 06/12/2021 AUDIT-C Answer Date Recorded Q1: How often do you have a drink containing alc ohol? Monthly or less 06/12/2021 Q2: How many drinks containi ng alcohol do you have on a typical day when you are drinking? 1 or 2 06/12/2021 Q3: How often do you have si x or more drinks on one occasion? Never 06/12/2021 Overall Financial Resource Strain (CARDIA) Answe r Date Recorded How hard is it for you to pa y for the very basics like food, housing, medical care, and heating? Somewhat hard 04/28/2024 PHQ-2 Answer Date Recorded Total Score 0 11/05/2024 [facility] - Occupational Stress Questionnaire Answer Date Recorded Do you feel stress - tense, restless, nervous, or anxious, or unable to sleep at night because your mind is troubled all the time - these days? Rather much 06/12/2021 Exercise Vital Sign Answer Date Recorde d On average, how many days pe r week do you engage in moderate to strenuous exercise (like a brisk walk)? 3 days 06/12/2021 On average, how many minutes do you engage in exercise at this level? 150+ min 06/12/2021 PRAPARE - Transportation Answer Date Re corded In the past 12 months, has l ack of transportation kept you from medical appointments or from getting medications? No 07/2023 In the past 12 months, has l ack of transportation kept you from meetings, work, or from getting things needed for daily living? No 04/28/2024 Housing Instability Answer Date Recorde d Are you worried or concerned that in the next two months you may not have stable housing that you own, rent or stay in as a part of a household? No 04/28/2024 Childcare Answer Date Recorded Do problems getting child ca re make it difficult for you to work or study? No 06/12/2021 Employment Answer Date Recorded Do you need help finding a l ocal career center and/or a training program? No 06/12/2021 Hunger Screening Answer Date Recorded Within the past 12 months we worried whether our food would run out before we got money to buy more. Never True 11/05/2024 Within the past 12 months th e food we bought just didn't last and we didn't have money to get more. Never True 11/05/2024 Purpose - Life Answer Date Recorded I have a purpose and direction in my life. Stron gly Agree 06/12/2021 Education Answer Date Recorded What is the highest level of school you have completed or the highest degree you have received? 12th grade 06/12/2021 Comments No Sex and Gender Information Value Date Recorded Sex Assigned at Not on file Legal Sex Female 11:51 AM EDT Gender Identity Not on file Sexual Orientation Not on file documented as of this encounter Last Filed Vital Signs Vital Sign Reading Time Taken Comments Blood Pressure 122/74 11/05/2024 10:25 AM EDT Pulse 77 11/05/2024 10:25 AM EDT Temperature - - Respiratory Rate 16 11/05/2024 10:25 AM EDT Oxygen Saturation 98% 11/05/2024 10:25 AM EDT Inhaled Oxygen Concentration - - Weight 67.6 kg (149 lb) 11/05/2024 10:25 AM EDT Height 165.1 cm (5' 5 ) 11/05/2024 10:25 AM EDT Body Mass Index 24.79 11/05/2024 10:25 AM EDT documented in this encounter Patient Instructions * Attachments The following attachments cannot be sent through Care Everywhere. * Routine physical for adults (German) documented in this encounter Progress Notes * Nemo Benjamin APRN-ARIANNA - 11/05/2024 10:30 AM EDT Images from the original note were not included. [address] [facility] [id number] Subjective: Angi Marshall is a 29 y.o. female who presents for an Annual Wellness exam. Patient presents to the office for routine wellness. She is still having stress. She is going to double the celexa to 40mg daily. She is back to work., Annual Exam Pertinent negatives include no abdominal pain, arthralgias, chest pain, congestion, coughing, fatigue, fever, joint swelling, nausea, neck pain, numbness, rash, sore throat, vomiting or weakness. The following portions of the patient's history were reviewed and updated as appropriate: medications, allergies, past medical history, past surgical history, social history, family history and immunization history Vitals: Vitals: 11/05/24 1025 BP: 122/74 Pulse: 77 Resp: 16 SpO2: 98% Weight: 67.6 kg (149 lb) Height: 165.1 cm (5' 5 ) History: Patient Active Problem List Diagnosis Date Noted Polyp of sigmoid colon 09/05/2022 Rh negative state in antepartum period 11/18/2019 Other constipation 11/18/2019 Ptyalism 11/18/2019 Smoking (tobacco) complicating , first trimester 11/05/2019 Past Medical History: Diagnosis Date Anxiety Depression High school - no meds Desmoid fibromatosis Meningitis 6 yo Migraines Elementary school Visual impairment Past Surgical History: Procedure Laterality Date COLONOSCOPY N/A 09/05/2022 Performed by Jeff Sepulveda DO at [facility] WISDOM TOOTH EXTRACTION Family History Problem Relation Age of Onset Thyroid disease Mother Cancer Father Diabetes Maternal Grandmother Breast cancer Maternal Grandmother Dementia Paternal Grandmother No Known Problems Paternal Grandfather Brain cancer Maternal Aunt Cancer Maternal Aunt long history of cancer Breast cancer Paternal Aunt 46 No Known Problems Half Sister No Known Problems Half Sister Diabetes Half Brother 12 Kidney disease Half Brother No Known Problems Half Brother No Known Problems Half Brother Colon cancer Neg Hx Ovarian cancer Neg Hx Uterine cancer Neg Hx Social History Tobacco Use Smoking status: Every Day Current packs/day: 0.50 Average packs/day: 0.5 packs/day for 6.0 years (3.0 ttl pk-yrs) Types: Cigarettes Smokeless tobacco: Never Tobacco comments: Smokes 5 cigarettes a day Substance Use Topics Alcohol use: Not Currently Comment: former Allergies: No Known Allergies Immunization History Administered Date(s) Administered DTP 1993, 1993, 1993, 11/20/2020 DTaP, Unspecified 06/25/1994, 09/03/1997 H1N1 Nasal 05/05/2009 HPV Quadrivalent 10/27/2007 Hep B, Adolescent or Pediatric 1993, 1993, 1993 HiB 1993, 1993, 1993, 06/25/1994 MMR 06/25/1994, 09/03/1997 OPV 1993, 1993, 1993, 09/03/1997 Tdap 11/08/2017 Review of Systems: Review of Systems Constitutional: Negative for fatigue, fever and unexpected weight change. HENT: Negative for congestion, ear pain, sinus pressure, sinus pain and sore throat. Eyes: Negative for photophobia, pain, discharge and visual disturbance. Respiratory: Negative for cough and shortness of breath. Cardiovascular: Negative for chest pain, palpitations and leg swelling. Gastrointestinal: Negative for abdominal pain, diarrhea, nausea and vomiting. Endocrine: Negative for polydipsia, polyphagia and polyuria. Genitourinary: Negative for difficulty urinating, frequency, hematuria and urgency. Musculoskeletal: Negative for arthralgias, gait problem, joint swelling and neck pain. Skin: Negative for pallor and rash. Neurological: Negative for dizziness, weakness, light-headedness and numbness. Psychiatric/Behavioral: Positive for sleep disturbance. The patient is nervous/anxious. Objective: BP 122/74 Pulse 77 Resp 16 Ht 165.1 cm (5' 5 ) Wt 67.6 kg (149 lb) SpO2 98% BMI 24.79 kg/m² Physical Exam Constitutional: Appearance: She is well-developed. HENT: Head: Normocephalic and atraumatic. Right Ear: External ear normal. Left Ear: External ear normal. Eyes: Conjunctiva/sclera: Conjunctivae normal. Pupils: Pupils are equal, round, and reactive to light. Cardiovascular: Rate and Rhythm: Normal rate and regular rhythm. Heart sounds: Normal heart sounds. Pulmonary: Effort: Pulmonary effort is normal. Breath sounds: Normal breath sounds. Musculoskeletal: Cervical back: Normal range of motion. Skin: General: Skin is warm and dry. Neurological: Mental Status: She is alert and oriented to person, place, and time. Psychiatric: Mood and Affect: Mood normal. Assessment/Plan: Angi was seen today for annual exam. Diagnoses and all orders for this visit: Wellness examination - CBC auto differential; Future - Comprehensive metabolic panel; Future - Lipid profile; Future Anxiety Gastroesophageal reflux disease, unspecified whether esophagitis present Migraine without aura and without status migrainosus, not intractable Iron deficiency - Iron and TIBC; Future - Ferritin; Future Other orders - famotidine (PEPCID) 40 mg tablet; Take 1 tablet (40 mg total) by mouth in the morning and 1 tablet (40 mg total) before bedtime. Plan Outpatient Medications Prior to Visit Medication Sig Dispense Refill citalopram (CeleXA) 20 mg tablet TAKE 1 TABLET (20 MG TOTAL) BY MOUTH IN THE MORNING 90 tablet 1 famotidine (PEPCID) 40 mg tablet Take 1 tablet (40 mg total) by mouth in the morning and 1 tablet (40 mg total) before bedtime. 60 tablet 5 No facility-administered medications prior to visit. Follow Up: Cbc,cmp,lipid,iron studies Increase celexa Follow up in six months SIA Sarabia 11/05/24 1038 documented in this encounter Miscellaneous Notes * Addendum Note - Juan Carlos Paul MD - 11/05/2024 10:30 AM EDTAddended by: JUAN CARLOS PAUL on: 11/25/2024 08:15 AM Modules accepted: Orders documented in this encounter Plan of Treatment Upcoming Encounters Date Type Department Care Team (Late st Contact Info) Description 05/07/2025 10:30 AM EST Office Visit [facility] [address] [place] [address] Nemo Benjamin APRN-CNP [address] [place] [address] documented as of this encounter Results * Ferritin (11/24/2024 12:26 PM EDT) [facility] FERRITIN 16 11 - 307 ng/mL 11/24/2024 7:46 PM EDT [facility] Blood Venous blood / Unknown Venipuncture / Unknown 11/24/2024 12:26 PM EDT 11/24/2024 12:26 PM EDT Nemo Benjamin APRN-FORESTRY FIRE AIDE LAB BLOOD ORDERABLES Final Result [facility] [address] [place] [address], [place] [phone] * (ABNORMAL) Iron and TIBC (11/24/2024 12:26 PM EDT) IRON 50 50 - 170 ug/dL 11/24/2024 7:31 PM EDT [facility] TRANSFERRIN 283 168 - 336 mg/dL 11/24/2024 7:31 PM EDT [facility] IRON BINDING 396 250 - 425 ug/dL 11/24/2024 7:31 PM EDT [facility] IRON SATURATION 13(L) 15 - 50 % SATURATION 11/24/2024 7:31 PM EDT [facility] Blood Venous blood / Unknown Venipuncture / Unknown 11/24/2024 12:26 PM EDT 11/24/2024 12:26 PM EDT Nemo Benjamin APRN-[facility] LAB BLOOD ORDERABLES Final Result [facility] [address] [place] [address], [place] [phone] * (ABNORMAL) Lipid profile (11/24/2024 12:26 PM EDT) CHOLESTEROL 121(L) 150 - 200 mg/dL 11/24/2024 7:31 PM EDT [facility] TRIGLYCERIDE 73 27 - 150 mg/dL 11/24/2024 7:31 PM EDT [facility] HDL CHOLESTEROL 62 >39 mg/dL 7:31 PM EDT [facility] Comment: HDL <40 mg/dL - High Risk HDL > or = 40mg/dL- Desirable HDL >60 mg/dL - Negative Risk LDL (CALC) 44 <130 mg/dL 11/24/2024 7:31 PM EDT [facility] Comment: LDL <100 mg/dL - Desirable LDL >160 mg/dL - High Risk CHOLESTEROL:HDL 2.0 1.0 - 5.0 7:31 PM EDT [facility] VERY LOW LIPOPROTEIN 15 0 - 30 mg/dL 11/24/2024 7:31 PM EDT [facility] Blood Venous blood / Unknown Venipuncture / Unknown 11/24/2024 12:26 PM EDT 11/24/2024 12:26 PM EDT us Nemo Benjamin FINISHED CIGAR MAKER-FORESTRY FIRE AIDE LAB BLOOD ORDERABLES Final Result [facility] [address] [place] [address], * Comprehensive metabolic panel (11/24/2024 12:26 PM EDT) SODIUM 140 134 - 146 mmol/L 11/24/2024 7:31 PM EDT [facility] POTASSIUM 4.3 3.5 - 5.0 mmol/L 11/24/2024 7:31 PM EDT [facility] CHLORIDE 106 98 - 109 mmol/L 11/24/2024 7:31 PM EDT [facility] CARBON DIOXIDE 26 22 - 32 mmol/L 11/24/2024 7:31 PM EDT [facility] ANION GAP 8 5 - 15 mmol/L 11/24/2024 7:31 PM EDT [facility] BLOOD UREA NITROGEN 7 5 - 23 mg/dL 11/24/2024 7:31 PM EDT [facility] CREATININE 0.90 0.40 - 1.00 mg/dL 11/24/2024 7:31 PM EDT [facility] Comment:METHOD TRACEABLE TO IDMS STANDARD GLUCOSE 78 65 - 99 mg/dL 11/24/2024 7:31 PM EDT [facility] CALCIUM 8.8 8.5 - 10.5 mg/dL 11/24/2024 7:31 PM EDT [facility] TOTAL PROTEIN 6.1 6.0 - 8.0 g/dL 11/24/2024 7:31 PM EDT [facility] ALBUMIN 4.1 3.2 - 5.3 g/dL 11/24/2024 7:31 PM EDT [facility] ALKALINE PHOSPHATASE 57 39 - 130 U/L 11/24/2024 7:31 PM EDT [facility] AST 15 <=41 U/L 11/24/2024 7:31 PM EDT [facility] ALT 11 <=31 U/L 11/24/2024 7:31 PM EDT [facility] BILIRUBIN,TOTAL 0.5 0.3 - 1.2 mg/dL 11/24/2024 7:31 PM EDT [facility] EGFR Non-Race Dependent 88 >=60 ml/min/1.7 3sq.m 11/24/2024 7:31 PM EDT [facility] Comment: Reported eGFR is based on the CKD-EPI 2020 equation that does not use a race coefficient. Blood Venous blood / Unknown Venipuncture / Unknown 11/24/2024 12:26 PM EDT 11/24/2024 12:26 PM EDT us Nemo Benjamin FINISHED CIGAR MAKER-FORESTRY FIRE AIDE LAB BLOOD ORDERABLES Final Result [facility] [address] [place] [address], [place] [phone] * CBC auto differential (11/24/2024 12:26 PM EDT) WBC 6.5 4 - 11 x10E9/L 11/24/2024 6:44 PM EDT [facility] RBC Count 4.64 3.8 - 5.2 X10E12/L 11/24/2024 6:44 PM EDT [facility] Hemoglobin 13.7 11.7 - 15.5 g/dL 11/24/2024 6:44 PM EDT [facility] Hematocrit 41.6 35 - 47 % 11/24/2024 6:44 PM EDT [facility] MCV 90 80 - 100 fL 11/24/2024 6:44 PM EDT [facility] MCH 29.5 27 - 34 pg 11/24/2024 6:44 PM EDT [facility] MCHC 33.0 32 - 36 g/dL 11/24/2024 6:44 PM EDT [facility] RDW 13.3 11.5 - 15 % 11/24/2024 6:44 PM EDT [facility] Platelet Count 365 150 - 450 X10E9/L 11/24/2024 6:44 PM EDT [facility] MPV 8.5 7 - 12 fL 11/24/2024 6:44 PM EDT [facility] Neutrophils % 54.2 % 11/24/2024 6:44 PM EDT [facility] Lymphocytes % 37.7 % 11/24/2024 6:44 PM EDT [facility] Monocytes % 5.5 % 11/24/2024 6:44 PM EDT [facility] Eosinophils % 1.7 % 11/24/2024 6:44 PM EDT [facility] Basophils % 0.9 % 11/24/2024 6:44 PM EDT [facility] Neutrophils Absolute (A) 3.5 1.5 - 6.6 10*3/uL 11/24/2024 6:44 PM EDT [facility] Lymphocytes Absolute 2.4 1.0 - 3.5 10*3/uL 11/24/2024 6:44 PM EDT [facility] Monocytes Absolute 0.4 0.0 - 0.9 10*3/uL 11/24/2024 6:44 PM EDT [facility] Eosinophils Absolute 0.1 0.0 - 0.4 10*3/uL 11/24/2024 6:44 PM EDT [facility] Basophils Absolute 0.1 0.0 - 0.2 10*3/uL 11/24/2024 6:44 PM EDT [facility] Differential Type AUTOMATED DIFFERENTIAL 11/24/2024 6:44 PM EDT [facility] Blood Venous blood / Unknown Venipuncture / Unknown 11/24/2024 12:26 PM EDT 11/24/2024 12:26 PM EDT us Nemo GIBBS LAB BLOOD ORDERABLES Final Result [facility] [address] [place] [address], documented in this encounter Visit Diagnoses Diagnosis Wellness examination- Primary Anxiety Anxiety state, unspecified Gastroesophageal reflux disease, unspecified whether esophagitis present Migraine without aura and without status migrainosus, not intractable Iron deficiency Disorders of iron metabolism documented in this encounter Additional Health Concerns Assessment Noted Time PHQ-9 Depression Total Score: 0 11/06/19 10:24 AM EDT A Body Mass Index follow-up plan has been documented for the patient 02/19/2024 2:15 PM EDT documented as of this encounter Care Teams Weather Stripper Relationship Specialty Start Date End Date Nemo Benjamin APRN-CNP [address] [place] [address] PCP - General Family Medicine 02/08/21 documented as of this encounter
--- OUTSIDE RECORDS SUMMARY | 2024-12-09 11:00 | XMS_ITS | Encounter Summary ---
Author Organization [facility] Address [address] [place] [address] Care Team Providers Care Electric Stove Installer Name Role Phone Jonathan Cornejo MD Primary Care Provider + [phone] Rodrick Scales DO Unavailable Reason for Visit * Reason Comments Well Women Visit Encounter Details Date Type Department Care Team ([facility] st Contact Info) Description 12/09/2024 11:00 AM EDT Office Visit [facility] [address] [place] [id number] Ijeoma [place] PA [address] [place], [facility] Well woman exam with routine gynecological exam; Menorrhagia with regular cycle Social History Tobacco Use Types Packs/Day Years Used Date Smoking Tobacco: Never Assessed Comments No Sex and Gender Information Value Date Recorded Sex Assigned at Not on file Legal Sex Female 7:12 PM EDT Gender Identity Not on file Sexual Orientation Not on file documented as of this encounter Last Filed Vital Signs Vital Sign Reading Time Taken Comments Blood Pressure 110/76 12/09/2024 11:20 AM EDT Pulse - - Temperature - - Respiratory Rate - - Oxygen Saturation - - Inhaled Oxygen Concentration - - Weight 68.3 kg (150 lb 8 oz) 12/09/2024 11:20 AM EDT Height 166.4 cm (5' 5.5 ) 12/09/2024 11:20 AM ED T Body Mass Index 24.66 12/09/2024 11:20 AM EDT documented in this encounter Progress Notes * DAVIDA Zuleta - 12/09/2024 11:00 AM EDT Reason for Appointment: Patient ID: Angi Marshall is a 29 y.o. female who presents for Well Women Visit Patient presents today for Annual Exam. MEDICATIONS No current outpatient medications ALLERGIES No Known Allergies PROBLEMS Active Ambulatory Problems Diagnosis Date Noted No Active Ambulatory Problems Resolved Ambulatory Problems Diagnosis Date Noted No Resolved Ambulatory Problems Past Medical History: Diagnosis Date Cellulitis Choroid plexus cyst Frequent headaches Marijuana use HISTORY PAST MEDICAL HISTORY SOCIAL HISTORY Past Medical History: Diagnosis Date Cellulitis Choroid plexus cyst Frequent headaches Marijuana use Social History Tobacco Use Smoking status: Not on file Smokeless tobacco: Not on file Substance Use Topics Alcohol use: Not on file Drug use: Not on file FAMILY HISTORY Family History Problem Relation Name Age of Onset Heart disease Brother Diabetes Maternal Grandmother Diabetes Sibling SURGICAL HISTORY Past Surgical History: Procedure Laterality Date SECTION, CLASSIC 07/02/2023 CT GUIDED CRYOABLATION BONE 09/21/2022 CT GUIDED CRYOABLATION BONE 09/21/2022 PAP SMEAR 2020 US GUIDED PERCUTANEOUS PLACEMENT 06/18/2022 US GUIDED PERCUTANEOUS PLACEMENT 06/18/2022 REVIEW OF SYSTEMS Review of Systems: Review of Systems Constitutional: Negative. HENT: Negative. Eyes: Negative. Respiratory: Negative. Cardiovascular: Negative. Gastrointestinal: Negative. Genitourinary: Negative. Musculoskeletal: Negative. Skin: Negative. Neurological: Negative. All other systems reviewed and are negative. Hematological: Negative. Endocrine: Negative. Allergic/Immunologic: Negative. OBJECTIVE Objective: Physical Exam Constitutional: Appearance: Normal appearance. Genitourinary: Right Adnexa: not tender and no mass present. Left Adnexa: not tender and no mass present. No cervical discharge. Breasts: Breasts are soft. Right: Normal. Left: Normal. HENT: Head: Normocephalic. Nose: Nose normal. Mouth/Throat: Mouth: Mucous membranes are moist. Cardiovascular: Rate and Rhythm: Normal rate. Pulmonary: Effort: Pulmonary effort is normal. Abdominal: General: Bowel sounds are normal. Palpations: Abdomen is soft. Musculoskeletal: General: Normal range of motion. Cervical back: Normal range of motion. Neurological: General: No focal deficit present. Mental Status: She is alert. Skin: General: Skin is warm and dry. Psychiatric: Mood and Affect: Mood normal. Vitals and nursing note reviewed. Exam conducted with a lending manager present. Vitals: Estimated body mass index is 24.66 kg/m² as calculated from the following: Height as of this encounter: 5' 5.5 . Weight as of this encounter: 150 lb 8 oz. BP: 110/76 Patient's last menstrual period was 12/06/2024 (approximate). ASSESSMENT & PLAN ICD-10-CM 1. Well woman exam with routine gynecological exam Z01.419 Pap Smear HPV DNA probe, amplified 2. Menorrhagia with regular cycle N92.0 US Pelvis w/ TV Annual Exam: Patient presents today for an annual exam. Patient states she is doing well and has no complaints. Pap was obtained without difficulty. Orders Placed This Encounter Procedures HPV DNA probe, amplified US Pelvis w/ TV Follow Up: Patient is to return in one year for annual unless needed otherwise. Documented by DAVIDA Zuleta on behalf of: DAVIDA Zuleta documented in this encounter Plan of Treatment Upcoming Encounters Date Type Department Care Team (Late st Contact Info) Description 12/13/2025 11:00 AM EDT Procedure Visit [facility] [address] [place] [id number] Ijeoma [place] PA [address] [place] [address] Scheduled Orders Name Type Priority Associated Diagnoses Orde r Schedule Pap Smear Pathology and Cytology Routine Well woman exam with routine gynecological exam Ordered: 12/09/2024 HPV DNA probe, amplified Microbiology Routine Well woman exam with routine gynecological exam Ordered: 12/09/2024 US Pelvis w/ TV Imaging Routine Menorrhagia with regular cycle Expected: 12/09/2024, Expires: 06/11/2025 documented as of this encounter Visit Diagnoses Diagnosis Well woman exam with routine gynecological exam Routine gynecological examination Menorrhagia with regular cycle documented in this encounter Care Teams Electric Stove Installer Relationship Specialty Start Date End Date Jonathan Cornejo MD PCP - General Family Medicine 04/04/23 Rodrick Scales DO [address] [place] [address] [place] [address] PCP - [facility] 11/25/23 documented as of this encounter
--- OUTSIDE RECORDS SUMMARY | 2024-12-09 15:06 | XMS_ITS | Encounter Summary ---
Author Organization [employer] s tem Address [id number] [address] [place] [address] Care Team Providers Care Slag Skimmer Name Role Phone Nemo Benjamin APRN-INTERPRETER TRANSLATOR Primary Care Provide r Encounter Details Date Type Department Care Team (Late st Contact Info) Description 07/27/2022 Orders Only [facility] [address] [place] [address] Mukund Long DO [address] [place] [address] Social History Tobacco Use Types Packs/Day Years Used Date Smoking Tobacco: Every Day Cigarettes Smokeless Tobacco: Never Comments:Smokes 5 cigarettes a day Alcohol Use Standard Drinks/Week Comments Not Currently 0 (1 standard drink = 0.6 oz pur e alcohol) social Social Connection and Isolat ion Panel [NHANES] Answer Date Recorded In a typical week, how many times do you talk on the phone with family, friends, or neighbors? More than three times a week 06/12/2021 How often do you get togethe r with friends or relatives? Once a week 06/12/2021 How often do you attend chur ch or adventist services? Patient declined 06/12/2021 Do you belong to any clubs o r organizations such as spiritism groups, unions, fraternal or athletic groups, or [...] like food, housing, medical care, and heating? Not hard at all 06/12/2021 PHQ-2 Answer Date Recorded Total Score 0 04/30/2022 [facility] [place] of Occupat ional Health - Occupational Stress [...] medical appointments or from getting medications? No 05/27 In the past 12 months, has l ack of transportation kept you from meetings, work, or from getting things needed for daily living? No 06/12/2021 Childcare Answer Date Recorded Do problems getting child ca re make it difficult for you to work or study? No 06/12/2021 Employment Answer Date Recorded Do you need help finding a l ocal career center and/or a training program? No 06/12/2021 Purpose - Life Answer Date Recorded I have a purpose and direction in my life. Semaj moore Agree 06/12/2021 Education Answer Date Recorded What is the highest level of school you have completed or the highest degree you have received? 12th grade 06/12/2021 Comments No Sex and Gender Information Value Date Recorded Sex Assigned at Not on file Legal Sex Female 11:51 AM EDT Gender Identity Not on file Sexual Orientation Not on file COVID-19 Exposure Response Date Recorded In the last month, have you been in contact with someone who was confirmed or suspected to have Coronavirus / COVID-19? No / Unsure 07/27/2022 10:45 AM EST documented as of this encounter Plan of Treatment Upcoming Encounters Date Type Department Care Team (Late st Contact Info) Description 05/07/2025 10:30 AM EST Office Visit [facility] [address] [place] [address] Nemo Benjamin APRN-CNP [address] [place] [address] documented as of this encounter Visit Diagnoses Not on filedocumented in this encounter Additional Health Concerns Assessment Noted Time PHQ-9 Depression Total Score: 0 04/30/20 22 3:24 PM EST A Body Mass Index follow-up plan has been documented for the patient 06/26/2022 2:54 PM EST documented as of this encounter Care Teams Slag Skimmer Relationship Specialty Start Date End Date Nemo Benjamin APRN-INTERPRETER TRANSLATOR [address] [place], [place] [id number] PCP - General Family Medicine 02/08/21 documented as of this encounter
--- OUTSIDE RECORDS SUMMARY | 2024-12-09 15:06 | XMS_ITS | Encounter Summary ---
Author Organization [facility] [employer] [facility] tem Address [id number] [address] [place] [address] Care Team Providers Care Stuffing Machine Operator Name Role Phone Nemo Benjamin APRN-HEAD USHER Primary Care Provide r Encounter Details Date Type Department Care Team (Late st Contact Info) Description 06/11/2022 Telephone [facility] Imaging [address] [place] [address] Kaylee Perez, IRASEMA Social History Tobacco Use Types Packs/Day Years Used Date Smoking Tobacco: Every Day Cigarettes 0.3 6 Smokeless Tobacco: Never Alcohol Use Standard Drinks/Week Comments Yes 0 (1 standard drink = 0.6 oz [...] 06/12/2021 How often do you attend chur or uatsdin services? Patient declined 06/12/2021 Do you belong to any clubs o r organizations such as taoist groups, unions, fraternal or athletic groups, or [...] Answer Date Recorded Total Score 0 04/30/2022 [facility] [place] of Occupat ional Health - Occupational Stress [...] Recorded Do you need help finding a [place] career center and/or a training program? No [...] have Coronavirus / COVID-19? No / Unsure 06/11/2022 9:10 AM EST documented as of this encounter Plan of Treatment Upcoming Encounters Date Type Department Care Team (Late st Contact Info) Description 05/07/2025 10:30 AM EST Office Visit [facility] [address] [place] [phone] Nemo Benjamin APRN-CNP [address] [place] [address] documented as of this encounter Visit Diagnoses Not on filedocumented in this encounter Additional Health Concerns Assessment Noted Time PHQ-9 Depression Total Score: 0 04/30/20 22 3:24 PM EST A Body Mass Index follow-up plan has been documented for the patient 04/30/2022 4:19 PM EST documented as of this encounter Care Teams Stuffing Machine Operator Relationship Specialty Start Date End Date Nemo Benjamin APRN-CNP [address] [place] [address] PCP - General Family Medicine 02/08/21 documented as of this encounter
--- OUTSIDE RECORDS SUMMARY | 2024-12-09 15:06 | XMS_ITS | Encounter Summary ---
Author Organization [employer] [facility] tem Address [facility] [id number] [address] [place] [address] Care Team Providers Care Sewing Pattern Layout Technician Name Role Phone Nemo Benjamin APRN-ARIANNA Primary Care Provide r Encounter Details Date Type Department Care Team (Late st Contact Info) Description 08/14/2022 Orders Only [facility] - Family Medicine [address] [place] [address] Jeff Sepulveda, [address] [place] [address] Desmoid fibromatosis (Primary Dx) Social History Tobacco Use Types Packs/Day Years [...] often do you attend chur ch or adventism services? Patient declined 06/12/2021 Do you belong to any clubs o r organizations such as yazdanism groups, unions, fraternal or athletic groups, or [...] PHQ-2 Answer Date Recorded Total Score 0 08/13/2022 [facility] of Occupat ional Health - Occupational Stress [...] Recorded Do you need help finding a [facility] career center and/or a training program? No 06/12/2021 Hunger Screening Answer Date Recorded Within the past 12 months we worried whether our food would run out before we got money to buy more. Never True 08/06/2022 Within the past 12 months th e food we bought just didn't last and we didn't have money to get more. Never True 08/06/2022 Purpose - Life Answer Date Recorded I [...] have Coronavirus / COVID-19? No / Unsure 08/13/2022 3:41 PM EDT documented as of this encounter Plan of Treatment Upcoming Encounters Date Type Department Care Team (Late st Contact Info) Description 05/07/2025 10:30 AM EST Office Visit [facility] [address] [place] [phone] Nemo Benjamin APRN-CNP [address] [place] [address] documented as of this encounter Visit Diagnoses Diagnosis Desmoid fibromatosis- Primary documented in this encounter Additional Health Concerns Assessment Noted Time PHQ-9 Depression Total Score: 0 08/14/19 23 3:46 PM EDT A Body Mass Index follow-up plan has been documented for the patient 06/26/2022 2:54 PM EST documented as of this encounter Care Teams Sewing Pattern Layout Technician Relationship Specialty Start Date End Date Nemo Benjamin APRN-CNP [address] [place] [address] PCP - General Family Medicine 02/08/21 documented as of this encounter
--- OUTSIDE RECORDS SUMMARY | 2024-12-09 15:06 | XMS_ITS | Clinical Summary ---
Author Organization [facility] Healthcare Address [address] [place] [address] Care Team Providers Care Bridge Game Director Name Role Phone Jonathan Cornejo MD Primary Care Provider + [phone] Rodrick Scales DO Unavailable Allergies No known active allergies Medications Vit-Fe Fumarate-FA ( 19) 29-1 MG chewable tablet TAKE 1 CHEW BY MOUTH IN THE MORNING. 3 12/10/19 25 Discontinued Hospital, Clinic, or Other Facility Administered Medication Ordered Dose Route Frequency Start Date End Date Status etonogestrel-eluting 68 mg contraceptive implant 1 eachIndications:Insertion of Nexplanon 1 each [place] Continuous 08/14/2023 08/13/2026 Active Encounters Date Type Department Care Team Description 12/09/2024 11:00 AM EDT Office Visit [facility] [address] [place] [address] Ijeoma Montana PA Well woman exam with routine gynecological exam; Menorrhagia with regular cycle 12/09/2024 Bamboo flowsheet [facility] [address] [place] [address] Ijeoma [place] PA 10/28/2024 Travel from Last 3 Months Family History Medical History Relation Name Comments Heart disease Brother Diabetes Maternal Grandmother Diabetes Sibling Relation Name Status Comments Brother Maternal Grandmother Sibling Social History Tobacco Use Types Packs/Day Years Used Date Smoking Tobacco: Never Assessed Comments No Sex and Gender Information Value Date Recorded Sex Assigned at Not on file Legal Sex Female 7:12 PM EDT Gender Identity Not on file Sexual Orientation Not on file Last Filed Vital Signs Vital Sign Reading [...] Mass Index 24.66 12/09/2024 11:20 AM EDT Plan of Treatment Upcoming Encounters Date Type Department Care Team (Late st Contact Info) Description 12/13/2025 11:00 AM EDT Procedure Visit [facility] [address] [place] [address] Ijeoma Montana PA [address] [place] [address] Health Maintenance Due Date Last Done Comments Influenza Vaccine (#1) 2025 Cervical Cancer Screening 02/21/2028 Pap Smear 02/21/2028 2023 HPV/Cotest 03/01/2028 03/01/2023 Procedures Procedure Name Priority Date/Time Associated Diagnosis Comments THINPREP PAP AND HPV MRNA E6/E7 W/RFL HPV 16,18/45 Routine 03/01/2023 8:56 AM EDT Well woman exam with routine gynecological exam PAP SMEAR Routine 2023 12:00 AM EDT from Last 3 Months or Most Recently Relevant to Health Maintenance Results * THINPREP PAP AND HPV MRNA E6/E7 W/RFL HPV 16,18/45 (03/01/2023 8:56 AM EDT) Rodrick Loyda DO LAB BLOOD ORDERABLES Final Resul t EXTERNAL LAB * Pap Smear (2023 12:00 AM EDT) Swab Cervical swab / Unknown Rodrick Loyda DO LAB CYTOLOGY ORDERABLES Final Re sult EXTERNAL LAB from Last 3 Months or Most Recently Relevant to Health Maintenance Insurance [employer] Care Teams Bridge Game Director Relationship Specialty Start Date End Date Jonathan Cornejo MD PCP - General Family Medicine 04/04/23 Rodrick Scales DO [address] [place] [address] [place] [address] PCP - [facility] 11/25/23
--- OUTSIDE RECORDS SUMMARY | 2024-12-09 15:06 | XMS_ITS | Encounter Summary ---
Author Organization [facility] tem Address [id number] [address] [place] [address] Care Team Providers Care Human Resources Safety Manager Name Role Phone Nemo Benjamin APRN-ARIANNA Primary Care Provide r Encounter Details Date Type Department Care Team (Late st Contact Info) Description 08/14/2022 Telephone [facility] - Family Medicine [address] [place] [phone] Nany William CMA Social History Tobacco Use Types Packs/Day Years [...] How often do you attend chur or jehovah's witness services? Patient declined 06/12/2021 Do you belong to any clubs o r organizations such as confucianist groups, unions, fraternal or athletic groups, or [...] Answer Date Recorded Total Score 0 08/13/2022 [facility] [place] of Occupat ional Health - Occupational Stress [...] Recorded Do you need help finding a [employer] career center and/or a training program? 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 Please send her [facility] to [facility]. documented in this encounter Plan of Treatment Upcoming Encounters Date Type Department Care Team (Late st Contact Info) Description 05/07/2025 10:30 AM EST Office Visit [facility] [address] [place] [address] Nemo Benjamin APRN-CNP [address] [place] [address] documented as of this encounter Visit Diagnoses Not on filedocumented in this encounter Additional Health Concerns Assessment Noted Time PHQ-9 Depression Total Score: 0 08/14/19 23 3:46 PM EDT A Body Mass Index follow-up plan has been documented for the patient 06/26/2022 2:54 PM EST documented as of this encounter Care Teams Human Resources Safety Manager Relationship Specialty Start Date End Date Nemo Benjamin APRN-CNP [address] [place], [place] [phone] PCP - General Family Medicine 02/08/21 documented as of this encounter
--- OUTSIDE RECORDS SUMMARY | 2024-12-09 15:07 | XMS_ITS | Encounter Summary ---
Author Organization [facility] Address [address] [place] [address] Care Team Providers Care Seed Core Operator Name Role Phone Jonathan Cornejo MD Primary Care Provider + [phone] Inocencio Scales DO Unavailable Encounter Details Date Type Department Care Team (Late st Contact Info) Description 03/20/2023 Clinisync Result Encounter [facility] External Department Unsolicited Inocencio Scales DO [address], [facility] Social History Tobacco Use Types Packs/Day Years Used Date Smoking Tobacco: Never Assessed Comments Yes Sex and Gender Information Value Date Recorded Sex Assigned at Not on file Legal Sex Female 7:12 PM EDT Gender Identity Not on file Sexual Orientation Not on file documented as of this encounter Plan of Treatment Upcoming Encounters Date Type Department Care Team ([facility] Contact Info) Description 12/13/2025 11:00 AM EDT Procedure Visit [facility] [address] [place] [phone] Ijeoma Montana PA [address] [place], [facility] documented as of this encounter Procedures Procedure Name Priority Date/Time Associated Diagnosis Comments US OB CERVICAL LENGTH 03/20/2023 9:05 PM EDT documented in this encounter Results * US OB CERVICAL LENGTH (03/20/2023 9:05 PM EDT) Anatomical Region Laterality Modality Other 03/20/2023 9:05 PM EDT Narrative 03/20/2023 9:05 PM EDT [address] [address] Ultrasound Report Signed Patient: JAMES SCOTT MR#: [id number] : 1995 Acct:[id number] Age/Sex: 28 / F ADM Date: 03/20/23 Loc: US Attending Dr: Inocencio Scales D.O. Ordering Physician: Inocencio Scales D.O. Date of Service: 03/20/23 Procedure(s): US OB cervical length Accession Number(s): [id number] cc: Inocencio Scales D.O.; Physician,Non-Staff Ila [address] [address] Patient Name: JAMES SCOTT MRN: [id number] date: 1995 Sex: F Assigned Patient Location: US Current Patient Location: US Accession/Order Number: [id number] Exam Date: 03/20/2023 08:43 Report Date: 03/20/2023 21:05 At the request of: INOCENCIO SCALES Procedure: US OB cervical length EXAMINATION: US OB anatomy, US OB cervical length HISTORY: ANATOMY COMPARISON: No relevant comparison available. TECHNIQUE: Transabdominal sonographic examination was performed for obstetrical and evaluation. FINDINGS: Number: 1 Heart Rate: Present Amniotic Fluid Volume: Subjectively normal Placental Location: ANTERIOR with lower margin 5.7 cm from os Cervix Length: 5 cm , closed BIOMETRY: BPD: 5.4 cm 22 weeks 4 days ; 96% HC: 19.9 cm 22 weeks 1 days; 88% AC: 17.7 cm 22 weeks 4 days; 91% FL: 3.5 cm 21 weeks 1 days ; 53% EFW:469.4 grams; 95% FL/AC: 20.0 FL/BPD: 65.2 HC/AC: 1.1 GESTATIONAL AGE: Age by EDC: 20 weeks 6 days RON by EDC: 08/01/2023 Age by current US: 22 weeks 1 days RON by current US: 07/23/2023 US/US OB cervical length IMPRESSION: 1. Single live intrauterine with growth detailed above. 2. Estimated weight is at 95th percentile. Electronically authenticated by: TAMAR HEREDIA Date: 03/20/2023 21:05 Dictated By: Tamar Heredia M.D. Signed By: 03/20/232107 DD/ 04 TD/TT: Credit Risk Specialist: Procedure Note Radiology, Radiologist, MD - 03/20/2023 [place] [address] Ultrasound Report Signed Patient: JAMES SCOTT JMR#: [id number] : 1995Acct:[id number] Age/Sex: 28 / FADM Date: 03/20/23 Loc: US Attending Dr: Inocencio Scales D.O. Ordering Physician: Inocencio Scales D.O. Date of Service: 03/20/23 Procedure(s): US OB cervical length Accession Number(s): [id number] cc: Inocencio Scales D.O.; Physician,Non-Staff Ila [facility] [place] [id number] Patient Name: JAMES SCOTT MRN: [id number] date: 1995 Sex: F Assigned Patient Location: Current Patient Location: US Accession/Order Number: [id number] Exam Date: 03/20/2023 08:43 Report Date: 03/20/2023 21:05 At the request of: INOCENCIO SCALES Procedure: US OB cervical length EXAMINATION: US OB anatomy, US OB cervical length HISTORY: ANATOMY COMPARISON: No relevant comparison available. TECHNIQUE: Transabdominal sonographic examination was performed for obstetrical and evaluation. FINDINGS: Number: 1 Heart Rate: Present Amniotic Fluid Volume: Subjectively normal Placental Location: ANTERIOR with lower margin 5.7 cm from os Cervix Length: 5 cm , closed BIOMETRY: BPD: 5.4 cm 22 weeks 4 days ; 96% HC: 19.9 cm 22 weeks 1 days; 88% AC: 17.7 cm 22 weeks 4 days; 91% FL: 3.5 cm 21 weeks 1 days ; 53% EFW:469.4 grams; 95% FL/AC: 20.0 FL/BPD: 65.2 HC/AC: 1.1 GESTATIONAL AGE: Age by EDC: 20 weeks 6 days RON by EDC: 08/01/2023 Age by current US: 22 weeks 1 days RON by current US: 07/23/2023 US/US OB cervical length IMPRESSION: 1. Single live intrauterine with growth detailed above. 2. Estimated weight is at 95th percentile. Electronically authenticated by: TAMAR HEREDIA Date: 03/20/2023 21:05 Dictated By: Tamar Heredia M.D. Signed By:03/20/232107 DD/ 04 TD/TT: Credit Risk Specialist: us Inocencio Scales DO [facility] Final Result documented in this encounter Visit Diagnoses Not on filedocumented in this encounter Care Teams Seed Core Operator Relationship Specialty Start Date End Date Jonathan Cornejo MD PCP - General Family Medicine 04/04/23 Inocencio Scales DO [address] [place] [address] [place] [address] PCP - [facility] 11/25/23 documented as of this encounter
--- OUTSIDE RECORDS SUMMARY | 2024-12-09 15:07 | XMS_ITS | Encounter Summary ---
Author Organization [facility] Address [address] [facility] [place] [address] Care Team Providers Care Procedures Nurse Name Role Phone Jonathan Cornejo MD Primary Care Provider [phone] Rodrick Scales DO Unavailable Encounter Details Date Type Department Care Team ([facility] Contact Info) Description 07/05/2023 Abstract [facility] [address] [facility] [place] [address] Rodrick Scales DO [address] [facility] [address] [place], [facility] [...] Upcoming Encounters Date Type Department Care Team ([facility] Contact Info) Description 12/13/2025 11:00 AM EDT Procedure Visit [facility] [address] [place] [address] Ijeoma Montana PA [address] [place] [address] documented as of this encounter Visit Diagnoses Not on filedocumented in this encounter Care Teams Procedures Nurse Relationship Specialty Start Date End Date Jonathan Cornejo MD PCP - General Family Medicine 04/04/23 Rodrick Scales DO [address] [place], [facility] PCP - [facility] 11/25/23 documented as of this encounter
--- OUTSIDE RECORDS SUMMARY | 2024-12-09 15:07 | XMS_ITS | Encounter Summary ---
Author Organization [employer] s tem Address [facility] [id number] [address] [place] [address] Care Team Providers Care Industrial Ecologist Name Role Phone Nemo Benjamin Primary Care Provide r Encounter Details Date Type Department Care Team (Late st Contact Info) Description 11/29/2022 Telephone [facility] [address] [place] [address] Anita Rico CMA Social History Tobacco Use Types Packs/Day [...] often do you attend chur ch or caodaism services? Patient declined 06/12/2021 Do you belong to any clubs o r organizations such as mormon groups, unions, fraternal or athletic groups, or [...] Answer Date Recorded Total Score 0 08/13/2022 [facility] of Occupat ional Health - Occupational Stress [...] Recorded Do you need help finding a [facility] career center and/or a training program? No [...] on file documented as of this encounter Miscellaneous Notes * Telephone Encounter - Anita Rico CMA - 11/29/2022 9:25 AM EDT Headache for 5 days just found out she was but does not see gyno till december was wonderingif you could do anything or recommend something since she is . Please advise * Telephone Encounter - SAI Sarabia - 11/29/2022 9:25 AM EDT She can take tylenol * Telephone Encounter - Anita Rico CMA - 11/29/2022 9:25 AM EDT I called patient and let her know to take tylenol, she mentioned she has stopped cold turkey her 40mg celexa. She did take her dose this morning, should she stop taking it all together or wean off of it. * Telephone Encounter - SAI Sarabia - 11/29/2022 9:25 AM EDT She should wean herself off of the medication, she can go down to 20mg for one week, then every three days, for one week then every other day for one week then stop documented in this encounter Plan of Treatment Upcoming Encounters Date Type Department Care Team (Late st Contact Info) Description 05/07/2025 10:30 AM EST Office Visit [facility] [address] [place] [address] Nemo Benjamin APRN-CNP [address] [place] [address] documented as of this encounter Visit Diagnoses Not on filedocumented in this encounter Additional Health Concerns Assessment Noted Time PHQ-9 Depression Total Score: 0 08/14/19 3:46 PM EDT A Body Mass Index follow-up plan has been documented for the patient 11/12/2022 3:21 PM EDT documented as of this encounter Care Teams Industrial Ecologist Relationship Specialty Start Date End Date Nemo Benjamin APRN-CNP [address] [place] [address] PCP - General Family Medicine 02/08/21 documented as of this encounter
--- OUTSIDE RECORDS SUMMARY | 2024-12-09 15:07 | XMS_ITS | Clinical Summary ---
Author Organization [facility] Address [id number] [address] [place] [address] Care Team Providers Care English Faculty Member Name Role Phone Nemo Benjamin APRN-PROCUREMENT INTERNSHIP Primary Care Provide r Allergies No known active allergies Medications citalopram (CeleXA) 20 mg tablet TAKE 1 TABLET (20 MG TOTAL) BY MOUTH IN THE MORNING 90 tablet 1 09/04/2024 Active famotidine (PEPCID) 40 mg tablet Take 1 tablet (40 mg total) by mouth in the morning and 1 tablet (40 mg total) before bedtime. 60 tablet 5 11/05/2024 Active ferrous sulfate 325 (65 FE) MG tabletIndicatio ns:Iron deficiency Take 1 tablet (325 mg total) by mouth before bedtime. 30 tablet 3 11/25/2024 Active Active Problems Problem Noted Date Diagnosed Date Polyp of sigmoid colon 09/05/2022 Rh negative state in antepartum period 0 Other constipation 11/18/2019 Ptyalism 11/18/2019 Smoking (tobacco) complicating , first trimester 11/05/2019 Overview (11/05/2019): Decreased to 3 cigs/day. Wants to quit completely. Referral placed to [facility] smoking cessation program. Risks of smoking during discussed. 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 Encounters Date Type Department Care Team Description 11/24/2024 Travel 11/05/2024 10:30 AM EDT Office Visit [facility] [address] [place] [id number] Nemo Benjamin APRN-CNP Wellness examination (Primary Dx); Anxiety; Gastroesophageal reflux disease, unspecified whether esophagitis present; Migraine without aura and without status migrainosus, not intractable; Iron deficiency 11/05/2024 Travel from Last 3 Months Immunizations Immunization Administration Dates Next Due DTP 11/20/2020,1993,1993 ,1993 DTaP, Unspecified 09/03/1997,06/25/1994 H1N1 Nasal 05/05/2009 HPV Quadrivalent 10/27/2007 Hep B, Adolescent or Pediatric 1993,1992,1993 HiB 06/25/1994,1993,1993 ,1993 MMR 09/03/1997,06/25/1994 OPV 09/03/1997,1993,1993 ,1993 Tdap 11/08/2017 Family History Medical History Relation Name Comments Cancer Father Diabetes Half Brother 1 Ney Kidney disease Half Brother 2 Jaaron No Known Problems Half Brother 3 Jona No Known Problems Half Brother 4 Warren No Known Problems Half Sister 1 No Known Problems Half Sister 2 Brain cancer Maternal Aunt Cancer Maternal Aunt long history o f cancer Breast cancer Maternal Grandmother Diabetes Maternal Grandmother Thyroid disease Mother Breast cancer Paternal Aunt No Known Problems Paternal Grandfather Dementia Paternal Grandmother Colon cancer Neg Hx Ovarian cancer Neg Hx Uterine cancer Neg Hx Relation Name Status Comments Father Alive Half Brother 1 Ney Alive Half Brother 2 Jaaron Alive Half Brother 3 Jona Alive Half Brother 4 Warren Alive Half Sister 1 Alive Half Sister 2 Alive Maternal Aunt Alive Maternal Grandfather no contact Maternal Grandmother Alive Mother Alive Paternal Aunt Alive Paternal Grandfather Alive Paternal Grandmother Alive Social History Tobacco Use Types Packs/Day Years Used Date Smoking Tobacco: Every Day Cigarettes 0.5 6 Smokeless Tobacco: Never Tobacco Cessation:Ready to Q uit: Not Asked; Counseling Given: Not Answered Comments:Smokes 5 cigarettes a day Alcohol Use [...] often do you attend chur ch or pentecostal services? Patient declined 06/12/2021 Do you belong to any clubs o r organizations such as baptism groups, [employer], [employer] or athletic groups, or school groups? No [...] Answer Date Recorded Total Score 0 11/05/2024 [facility] - Occupational Stress Questionnaire Answer Date Recorded [...] Recorded Do you need help finding a [facility] career center and/or a training program? No [...] Pulse 77 11/05/2024 10:25 AM EDT Temperature 36.6 C (97.9 F) 09/05/2022 9:20 AM EDT Respiratory Rate 16 11/05/2024 10:25 AM EDT Oxygen Saturation 98% 11/05/2024 10:25 AM EDT Inhaled Oxygen Concentration - - Weight 67.6 kg (149 lb) 11/05/2024 10:25 AM EDT Height 165.1 cm (5' 5 ) 11/05/2024 10:25 AM EDT Body Mass Index 24.79 11/05/2024 10:25 AM EDT Plan of Treatment Upcoming Encounters Date Type Department Care Team (Late st Contact Info) Description 05/07/2025 10:30 AM EST Office Visit [facility] [address] [place] [phone] Nemo Benjamin, PLANE TENDER-PROCUREMENT INTERNSHIP [address] [place] [address] Health Maintenance Due Date Last Done Comments Tobacco Counseling 1995 Influenza Vaccine 01/25/2025 05/05/2009 Adult BMI Screening 11/05/2025 11/05/2024 Depression Screening 11/05/2025 11/05/2024 Tobacco Screening 11/05/2025 11/05/2024 Pap Smear 2026 2023, 06/28, 04/09/2017 DTaP,Tdap and Td Vaccines (8 - Td or Tdap) 11/20/2030 11/20/2020, 11/08/2017, 09/03/1997, Additional history exists Medical Devices Not on file Procedures Procedure Name Priority Date/Time Associated Diagnosis Comments FERRITIN Routine 11/24/2024 12:26 PM EDT Iron deficiency IRON AND TIBC Routine 11/24/2024 12:26 PM EDT Iron deficiency LIPID PROFILE Routine 11/24/2024 12:26 PM EDT Wellness examination COMPREHENSIVE METABOLIC PANEL Routine 11/24/2024 12:26 PM EDT Wellness examination CBC WITH AUTO DIFFERENTIAL Routine 11/24/2024 12:26 PM EDT Wellness examination PAP SMEAR Routine 07/22/2018 1:20 PM EST Encounter for well woman exam with routine gynecological exam from Last 3 Months or Most Recently Relevant to Health Maintenance Results * CBC auto differential (11/24/2024 12:26 PM EDT) WBC 6.5 4 - 11 x10E9/L 11/24/2024 6:44 PM EDT [facility] RBC Count 4.64 3.8 - 5.2 X10E12/L 11/24/2024 6:44 PM EDT [facility] Hemoglobin 13.7 11.7 - 15.5 g/dL 11/24/2024 6:44 PM EDT [facility] Hematocrit 41.6 35 - 47 % 11/24/2024 6:44 PM EDT [facility] MCV 90 80 - 100 fL 11/24/2024 6:44 PM EDT [facility] MCH 29.5 27 - 34 pg 11/24/2024 6:44 PM EDT [facility] MCHC 33.0 32 - 36 g/dL 11/24/2024 6:44 PM EDT [facility] RDW 13.3 11.5 - 15 % 11/24/2024 6:44 PM EDT [facility] Platelet Count 365 150 - 450 X10E9/L 11/24/2024 6:44 PM EDT [facility] MPV 8.5 7 - 12 fL 11/24/2024 6:44 PM EDT [facility] Neutrophils % 54.2 % 11/24/2024 6:44 PM EDT [facility] Lymphocytes % 37.7 % 11/24/2024 6:44 PM EDT [facility] Monocytes % 5.5 % 11/24/2024 6:44 PM EDT [facility] Eosinophils % 1.7 % 11/24/2024 6:44 PM EDT [facility] Basophils % 0.9 % 11/24/2024 6:44 PM EDT [facility] Neutrophils Absolute (A) 3.5 1.5 - 6.6 10*3/uL 11/24/2024 6:44 PM EDT [facility] Lymphocytes Absolute 2.4 1.0 - 3.5 10*3/uL 11/24/2024 6:44 PM EDT [facility] Monocytes Absolute 0.4 0.0 - 0.9 10*3/uL 11/24/2024 6:44 PM EDT [facility] Eosinophils Absolute 0.1 0.0 - 0.4 10*3/uL 11/24/2024 6:44 PM EDT [facility] Basophils Absolute 0.1 0.0 - 0.2 10*3/uL 11/24/2024 6:44 PM EDT [facility] Differential Type AUTOMATED DIFFERENTIAL 11/24/2024 6:44 PM EDT [facility] Blood Venous blood / Unknown Venipuncture / Unknown 11/24/2024 12:26 PM EDT 11/24/2024 12:26 PM EDT [facility] PL[facility] TENDER-PROCUREMENT INTERNSHIP LAB BLOOD ORDERABLES Final Result [facility] [address] [place] [address], [place] [phone] * (ABNORMAL) Iron and TIBC (11/24/2024 12:26 PM EDT) IRON 50 50 - 170 ug/dL 11/24/2024 7:31 PM EDT [facility] TRANSFERRIN 283 168 - 336 mg/dL 11/24/2024 7:31 PM EDT [facility] IRON BINDING 396 250 - 425 ug/dL 11/24/2024 7:31 PM EDT [facility] IRON SATURATION 13(L) 15 - 50 % SATURATION 11/24/2024 7:31 PM EDT [facility] Blood Venous blood / Unknown Venipuncture / Unknown 11/24/2024 12:26 PM EDT 11/24/2024 12:26 PM EDT [facility] PLANE TENDER-PROCUREMENT INTERNSHIP LAB BLOOD ORDERABLES Final Result [facility] [address] [place] [address], [place] [phone] * Ferritin (11/24/2024 12:26 PM EDT) FERRITIN 16 11 - 307 ng/mL 11/24/2024 7:46 PM EDT [facility] Blood Venous blood / Unknown Venipuncture / Unknown 11/24/2024 12:26 PM EDT 11/24/2024 12:26 PM EDT Nemo Benjamin PLANE TENDER-PROCUREMENT INTERNSHIP LAB BLOOD ORDERABLES Final Result [facility] [address] [place] [address], [place] [phone] * (ABNORMAL) Lipid profile (11/24/2024 12:26 PM EDT) CHOLESTEROL 121(L) 150 - 200 mg/dL 11/24/2024 7:31 PM EDT [facility] TRIGLYCERIDE 73 27 - 150 mg/dL 11/24/2024 7:31 PM EDT [facility] HDL CHOLESTEROL 62 >39 mg/dL 7:31 PM EDT [facility] Comment: HDL <40 mg/dL - High Risk HDL > or = 40mg/dL- Desirable HDL >60 mg/dL - Negative Risk LDL (CALC) 44 <130 mg/dL 11/24/2024 7:31 PM EDT [facility] Comment: LDL <100 mg/dL - Desirable LDL >160 mg/dL - High Risk CHOLESTEROL:HDL 2.0 1.0 - 5.0 7:31 PM EDT [facility] VERY LOW LIPOPROTEIN 15 0 - 30 mg/dL 11/24/2024 7:31 PM EDT [facility] Blood Venous blood / Unknown Venipuncture / Unknown 11/24/2024 12:26 PM EDT 11/24/2024 12:26 PM EDT Nemo Benjamin PLANE TENDER-PROCUREMENT INTERNSHIP LAB BLOOD ORDERABLES Final Result [facility] [address] [place] [address], * Comprehensive metabolic panel (11/24/2024 12:26 PM EDT) SODIUM 140 134 - 146 mmol/L 11/24/2024 7:31 PM EDT [facility] POTASSIUM 4.3 3.5 - 5.0 mmol/L 11/24/2024 7:31 PM EDT [facility] CHLORIDE 106 98 - 109 mmol/L 11/24/2024 7:31 PM EDT [facility] CARBON DIOXIDE 26 22 - 32 mmol/L 11/24/2024 7:31 PM EDT [facility] ANION GAP 8 5 - 15 mmol/L 11/24/2024 7:31 PM EDT [facility] BLOOD UREA NITROGEN 7 5 - 23 mg/dL 11/24/2024 7:31 PM EDT [facility] CREATININE 0.90 0.40 - 1.00 mg/dL 11/24/2024 7:31 PM EDT [facility] Comment:METHOD TRACEABLE TO IDMS STANDARD GLUCOSE 78 65 - 99 mg/dL 11/24/2024 7:31 PM T [facility] CALCIUM 8.8 8.5 - 10.5 mg/dL 11/24/2024 7:31 PM EDT [facility] TOTAL PROTEIN 6.1 6.0 - 8.0 g/dL 11/24/2024 7:31 PM T [facility] ALBUMIN 4.1 3.2 - 5.3 g/dL 11/24/2024 7:31 PM EDT [facility] ALKALINE PHOSPHATASE 57 39 - 130 U/L 11/24/2024 7:31 PM EDT [facility] AST 15 <=41 U/L 11/24/2024 7:31 PM EDT [facility] ALT 11 <=31 U/L 11/24/2024 7:31 PM T [facility] BILIRUBIN,TOTAL 0.5 0.3 - 1.2 mg/dL 11/24/2024 7:31 PM EDT [facility] EGFR Non-Race Dependent 88 >=60 ml/min/1.7 3sq.m 11/24/2024 7:31 PM EDT [facility] Comment: Reported eGFR is based on the CKD-EPI 2020 equation that does not use a race coefficient. Blood Venous blood / Unknown Venipuncture / Unknown 11/24/2024 12:26 PM EDT 11/24/2024 12:26 PM EDT us Nemo Benjamin PLANE TENDER-PROCUREMENT INTERNSHIP LAB BLOOD ORDERABLES Final Result [facility] [address] [place] [address], * Pap Smear (07/22/2018 1:20 PM EST) Cervical TP 07/22/2018 1:20 PM EST 07/22/2018 1:22 PM EST Narrative COPATH - 07/24/2018 9:19 AM EST [facility] [address] [place] [address] Gynecologic Cytology Consultation Patient Name: JAMES SCOTT : 1995 (Age: 23) Gender: F Taken: 07/22/2018 Reported: 07/24/2018 Physician(s): Teri Pandya MD ([phone]) Copy To: [facility] Rec. #: [id number] Acct: # [id number] Final Cytologic Interpretation Cervical (with or without endocervical) ThinPrep: Satisfactory for evaluation. A transformation zone component is present. NEGATIVE FOR INTRAEPITHELIAL LESION OR MALIGNANCY. [facility]/07/24/2018 Interpretation performed at [facility], [address] [place] [address], License number: [id number]. Electronically Signed Out By KJ Lee(ASCP) Date of Last Menstrual Period: 06/23/18 Other Clinical Conditions: z01.419 Production Engineer exam wo/abn findings LMP: Nexplanon Source of Specimen Cervical (with or without endocervical) ThinPrep Thin Prep Pap (PIPE AND BOILER COVERS SUPERVISOR) Fee Code(s): G0145 The Pap test is a screening test with an inherent, but low, probability of error. The Pap test is primarily effective for the diagnosis and prevention of squamous cell carcinoma. Regular screening is critical for prevention. ThinPrep liquid-based slides, which meet the Housekeeping Staff criteria for automated screening, have been screened by the ThinPrep Imaging System (as of 02/10/07) along with an additional manual rescreening by a reference investigator and, if indicated, by a pathologist.Bryn Barber 07/23/2018 us Teri Pandya MD PATHOLOGY/CYTOLOGY ORDERABL ES Final Result COP[facility] from Last 3 Months or Most Recently Relevant to Health Maintenance Insurance [employer] * Guarantor: James Scott Account Type Relation to Patient Date of Phone Billing Address Workers Comp Self 1995 [address] [place] [address] Care Teams English Faculty Member Relationship Specialty Start Date End Date Nemo Benjamin APRN-ARIANNA [address] [place] [address] PCP - General Family Medicine 02/08/21
--- OUTSIDE RECORDS SUMMARY | 2024-12-09 15:07 | XMS_ITS | Encounter Summary ---
Author Organization [facility] tem Address [id number] [address] [place] [address] Care Team Providers Care Clinical Instructor Name Role Phone Nemo Benjamin Primary Care Provide r Encounter Details Date Type Department Care Team ([facility] st Contact Info) Description 05/07/2022 Orders Only [facility] [address] [place] [address] Nemo Benjamin APRN-CNP [address] [place], [place] [id number] Social History Tobacco Use Types Packs/Day Years [...] often do you attend chur ch or judaism services? Patient declined 06/12/2021 Do you belong to any clubs o r organizations such as islam groups, unions, fraternal or athletic groups, or [...] Answer Date Recorded Total Score 0 04/30/2022 [facility] [place] [facility] - Occupational Stress [...] have Coronavirus / COVID-19? No / Unsure 05/09/2022 9:09 AM EST documented as of this encounter Plan of Treatment Upcoming Encounters Date Type Department Care Team (Late st Contact Info) Description 05/07/2025 10:30 AM EST Office Visit [facility] [address] [place] [address] Nemo Benjamin APRN-CNP [address] [place] [address] documented as of this encounter Visit Diagnoses Not on filedocumented in this encounter Additional Health Concerns Assessment Noted Time PHQ-9 Depression Total Score: 0 04/30/20 22 3:24 PM EST A Body Mass Index follow-up plan has been documented for the patient 04/30/2022 4:19 PM EST documented as of this encounter Care Teams Clinical Instructor Relationship Specialty Start Date End Date Nemo Benjamin APRN-HOUSING CASE MANAGER [address] [place], [place] [phone] PCP - General Family Medicine 02/08/21 documented as of this encounter
--- OUTSIDE RECORDS SUMMARY | 2024-12-09 15:07 | XMS_ITS | Encounter Summary ---
Author Organization [facility] Address [address] [place] [address] Care Team Providers Care Journal Box Inspector Name Role Phone Jonathan Cornejo MD Primary Care Provider [phone] Inocencio Scales DO Unavailable Encounter Details Date Type Department Care Team (Late st Contact Info) Description 03/20/2023 Clinisync Result Encounter [facility] External Department Unsolicited Inocencio Scales DO [address], [facility] Social History Tobacco Use Types Packs/Day Years Used Date Smoking Tobacco: Never Assessed Comments Yes Sex and Gender Information Value Date Recorded Sex Assigned at Not on file Legal Sex Female 7:12 PM EDT Gender Identity Not on file Sexual Orientation Not on file documented as of this encounter Plan of Treatment Upcoming Encounters Date Type Department Care Team ([facility] Contact Info) Description 12/13/2025 11:00 AM EDT Procedure Visit [facility] OB [address] [phone] Ijeoma [place] PA [address] [facility] [address] [place], [facility] documented as of this encounter Procedures Procedure Name Priority Date/Time Associated Diagnosis Comments US OB ANATOMY 03/20/2023 9:05 PM EDT documented in this encounter Results * US OB ANATOMY (03/20/2023 9:05 PM EDT) Anatomical Region Laterality Modality Other 03/20/2023 9:05 PM EDT Narrative 03/20/2023 9:05 PM EDT [address] [address] Ultrasound Report Signed Patient: JAMES SCOTT MR#: [id number] : 1995 Acct:[id number] Age/Sex: 28 / F ADM Date: 03/20/23 Loc: US Attending Dr: Inocencio Scales D.O. Ordering Physician: Inocencio Scales D.O. Date of Service: 03/20/23 Procedure(s): US OB anatomy Accession Number(s): [id number] cc: Inocencio Scales D.O.; Physician,Non-Staff [place] [id number] Patient Name: JAMES SCOTT MRN: [id number] date: 1995 Sex: F Assigned Patient Location: US Current Patient Location: US Accession/Order Number: [id number] Exam Date: 03/20/2023 08:44 Report Date: 03/20/2023 21:05 At the request of: INOCENCIO SCALES Procedure: US OB anatomy EXAMINATION: US OB anatomy, US OB cervical [...] RON by current US: 07/23/2023 US/US OB anatomy IMPRESSION: 1. Single live intrauterine with growth detailed above. 2. Estimated weight is at 95th percentile. Electronically authenticated by: TAMAR HEREDIA Date: 03/20/2023 21:05 Dictated By: Tamar Heredia M.D. Signed By: 03/20/232107 DD/ 04 TD/TT: Leaf Sucker Operator: Procedure Note Radiology, Radiologist, MD - 03/20/2023 [place] [address] Ultrasound Report Signed Patient: JAMES SCOTT JMR#: [id number] : 1995Acct:[id number] Age/Sex: 28 / FADM Date: 03/20/23 Loc: US Attending Dr: Inocencio Scales D.O. Ordering Physician: Inocencio Scales D.O. Date of Service: 03/20/23 Procedure(s): US OB anatomy Accession Number(s): [id number] cc: Inocencio Scales D.O.; Physician,Non-Staff [place] [id number] Patient Name: JAMES SCOTT MRN: [id number] date: 1995 Sex: F Assigned Patient Location: Current Patient Location: Accession/Order Number: [id number] Exam Date: 03/20/2023 08:44 Report Date: 03/20/2023 21:05 At the request of: INOCENCIO SCALES Procedure: US OB anatomy EXAMINATION: US OB anatomy, US OB cervical [...] RON by current US: 07/23/2023 US/US OB anatomy IMPRESSION: 1. Single live intrauterine with growth detailed above. 2. Estimated weight is at 95th percentile. Electronically authenticated by: TAMAR HEREDIA Date: 03/20/2023 21:05 Dictated By: Tamar Heredia M.D. Signed By:03/20/232107 DD/ 04 TD/TT: Leaf Sucker Operator: Inocencio Scales DO [facility] Final Result documented in this encounter Visit Diagnoses Not on filedocumented in this encounter Care Teams Journal Box Inspector Relationship Specialty Start Date End Date Jonathan Cornejo MD PCP - General Family Medicine 04/04/23 Inocencio Scales DO [address] [place] [address] [place] [address] PCP - [facility] 11/25/23 documented as of this encounter
--- OUTSIDE RECORDS SUMMARY | 2024-12-09 15:07 | XMS_ITS | Encounter Summary ---
Author Organization [facility] Address [address] [place] [address] Care Team Providers Care Asphalt Raker Name Role Phone Jonathan Cornejo MD Primary Care Provider [phone] Inocencio Scales DO Unavailable Encounter Details Date Type Department Care Team (Late st Contact Info) Description 03/20/2023 Clinisync Result Encounter [facility] External Department Unsolicited Inocencio Scales DO [address] Cox, [facility]11 Social History Tobacco Use Types Packs/Day Years Used Date Smoking Tobacco: Never Assessed Comments Yes Sex and Gender Information Value Date Recorded Sex Assigned at Not on file Legal Sex Female 7:12 PM EDT Gender Identity Not on file Sexual Orientation Not on file documented as of this encounter Plan of Treatment Upcoming Encounters Date Type Department Care Team ([facility] Contact Info) Description 12/13/2025 11:00 AM EDT Procedure Visit [facility] BCP OB [address] [place] [phone] Ijeoma Montana PA [address] [facility] [address] [place], [facility]11 documented as of this encounter Procedures Procedure Name Priority Date/Time Associated Diagnosis Comments US OB ANATOMY 03/20/2023 9:05 PM EDT documented in this encounter Results * US OB ANATOMY (03/20/2023 9:05 PM EDT) Anatomical Region Laterality Modality Other 03/20/2023 9:05 PM EDT Narrative 12/23/2023 8:27 [place] [address] Ultrasound Report Signed with Alvina Patient: JAMES SCOTT MR#: [id number] : 1995 Acct:[id number] Age/Sex: 28 / F ADM Date: 03/20/23 Loc: US Attending Dr: Inocencio Scales D.O. Ordering Physician: Inocencio Scales D.O. Date of Service: 03/20/23 Procedure(s): US OB anatomy Accession Number(s): [id number] cc: Inocencio Scales D.O.; Physician,Non-Staff Ila ADDENDUM The [address] [address] Patient Name: JAMES SCOTT MRN: [id number] date: 1995 Sex: F Assigned Patient Location: US Current Patient Location: US Accession/Order Number: [id number] Exam Date: 03/20/2023 08:44 Report Date: 03/20/2023 21:08 At the request of: INOCENCIO SCALES Procedure: US OB anatomy Begin Addendum #1 ANATOMY: Normal Structures -cerebellum, choroid plexus, cisterna magna, lateral cerebral ventricles, orbits, midline falx, hard palate, four-chamber heart, RVOT, LVOT, stomach, kidneys, bladder, umbilical cord insertion into abdomen, three-vessel cord, cervical spine, thoracic spine, lumbar spine, sacral spine, right upper extremity, left upper extremity, right lower extremity, left lower extremity. SUBOPTIMALLY SEEN: None ABNORMALITIES: None Original Report EXAMINATION: US OB anatomy, US OB cervical length HISTORY: ANATOMY COMPARISON: No relevant comparison available. TECHNIQUE: Transabdominal sonographic examination was performed for obstetrical and evaluation. FINDINGS: Number: 1 Heart Rate: Present Amniotic Fluid Volume: Subjectively normal Placental Location: ANTERIOR with lower margin 5. 7 cm from os Cervix Length: 5 cm , closed BIOMETRY: BPD: 5. 4 cm 22 weeks 4 days ; 96% HC: 19. 9 cm 22 weeks 1 days; 88% AC: 17. 7 cm 22 weeks 4 days; 91% FL: 3. 5 cm 21 weeks 1 days ; 53% EFW:469. 4 grams; 95% FL/AC: 20. 0 FL/BPD: 65. 2 HC/AC: 1. 1 GESTATIONAL AGE: Age by EDC: 20 weeks 6 days RON by EDC: 08/01/2023 Age by current US: 22 weeks 1 days RON by current US: 07/23/2023 Addendum Dictated By: Tamar Heredia M.D. Addendum Signed By: <Electronically signed by Tamar Heredia M.D.> 12/23/23826 Addendum Cosigned By: DD/ TD/TT: / ADDENDUM US/US OB anatomy IMPRESSION: 1. Single live intrauterine with growth detailed above. 2. Estimated weight is at 95th percentile. Electronically authenticated by: TAMAR HEREDIA Date: 03/20/2023 21:08 Addendum Dictated By: Tamar Heredia M.D. Addendum Signed By: <Electronically signed by Tamar Heredia M.D.> 12/23/23826 Addendum Cosigned By: DD/ TD/TT: / [place] [address] Patient Name: JAMES SCOTT MRN: [id number] date: 1995 Sex: F Assigned Patient Location: US Current Patient Location: Accession/Order Number: [id number] Exam Date: 03/20/2023 08:44 Report Date: 03/20/2023 [...] M.D. Signed By: 03/20/232107 DD/ 04 TD/TT: Delivery Man: Procedure Note Radiology, Radiologist, MD - 12/23/2023 [place] [address] Ultrasound Report Signed with Alvina Patient: JAMES SCOTT JMR#: [id number] : 1995Acct:[id number] Age/Sex: 28 / FADM Date: 03/20/23 Loc: US Attending Dr: Inocencio Scales D.O. Ordering Physician: Inocencio Scales D.O. Date of Service: 03/20/23 Procedure(s): US OB anatomy Accession Number(s): [id number] cc: Inocencio Scales D.O.; Physician,Non-Staff Ila ADDENDUM The [address] [address] Patient Name: JAMES SCOTT MRN: [id number] date: 1995 Sex: F Assigned Patient Location: US Current Patient Location: US Accession/Order Number: [id number] Exam Date: 03/20/2023 08:44 Report Date: 03/20/2023 21:08 At the request of: INOCENCIO SCALES Procedure: US OB anatomy Begin Addendum #1 ANATOMY: Normal Structures -cerebellum, choroid plexus, cisterna magna, lateral cerebral ventricles, orbits, midline falx, hard palate, four-chamberheart, RVOT, LVOT, stomach, kidneys, bladder, umbilical cord insertion intoabdomen, three-vessel cord, cervical spine, thoracic spine, lumbar spine, sacralspine, right upper extremity, left upper extremity, right lower extremity, leftlower extremity. SUBOPTIMALLY SEEN: None ABNORMALITIES: None Original Report EXAMINATION: US OB anatomy, US OB cervical length HISTORY: ANATOMY COMPARISON: No relevant comparison available. TECHNIQUE: Transabdominal sonographic examination was performed for obstetrical and evaluation. FINDINGS: Number: 1 Heart Rate: Present Amniotic Fluid Volume: Subjectively normal Placental Location: ANTERIOR with lower margin 5. 7 cm from os Cervix Length: 5 cm , closed BIOMETRY: BPD: 5. 4 cm 22 weeks 4 days ; 96% HC: 19. 9 cm 22 weeks 1 days; 88% AC: 17. 7 cm 22 weeks 4 days; 91% FL: 3. 5 cm 21 weeks 1 days ; 53% EFW:469. 4 grams; 95% FL/AC: 20. 0 FL/BPD: 65. 2 HC/AC: 1. 1 GESTATIONAL AGE: Age by EDC: 20 weeks 6 days RON by EDC: 08/01/2023 Age by current US: 22 weeks 1 days RON by current US: 07/23/2023 Addendum Dictated By: Tamar Heredia M.D. Addendum Signed By: <Electronically signed by Tamar Heredia M.D.> 12/23/23826 Addendum Cosigned By: DD/ TD/TT: / ADDENDUM US/US OB anatomy IMPRESSION: 1. Single live intrauterine with growth detailed above. 2. Estimated weight is at 95th percentile. Electronically authenticated by: TAMAR HEREDIA Date: 03/20/2023 21:08 Addendum Dictated By: Tamar Heredia M.D. Addendum Signed By: <Electronically signed by Tamar Heredia M.D.> 12/23/23826 Addendum Cosigned By: DD/ TD/TT: / [place] [id number] Patient Name: JAMES SCOTT MRN: [id number] date: 1995 Sex: F Assigned Patient Location: US Current Patient Location: Accession/Order Number: [id number] Exam Date: 03/20/2023 08:44 Report Date: 03/20/2023 [...] Heredia M.D. Signed By:03/20/232107 DD/ 04 TD/TT: Delivery Man: us Inocencio Scales DO [facility] Final Result documented in this encounter Visit Diagnoses Not on filedocumented in this encounter Care Teams Asphalt Raker Relationship Specialty Start Date End Date Jonathan Cornejo MD PCP - General Family Medicine 04/04/23 Inocencio Scales DO [address] [facility] [address] Guy [place] [address] PCP - [facility] 11/25/23 documented as of this encounter
--- OUTSIDE RECORDS SUMMARY | 2024-12-09 15:07 | XMS_ITS | Encounter Summary ---
Author Organization [facility] Address [facility]-[id number] [address] [place] [address] Care Team Providers Care Production Bow Maker Name Role Phone Nemo Benjamin Primary Care Provide r Reason for Visit * Reason Comments Med Change Request Encounter Details Date Type Department Care Team ([facility] st Contact Info) Description 03/15/2024 Refill [facility] [address] [place] [address] Nemo Benjamin APRN-CNP [address] [place], [place] [phone] Social History Tobacco Use Types Packs/Day Years [...] often do you attend chur ch or orthodox services? Patient declined 06/12/2021 Do you belong to any clubs o r organizations such as congregational groups, unions, fraternal or athletic groups, or [...] Date Recorded Total Score 0 08/13/2022 [facility] - Occupational Stress [...] Recorded Do you need help finding a [facility] career center and/or a training program? [...] encounter Miscellaneous Notes * Telephone Encounter - SAI Sarabia - 03/15/2024 8:37 AM EDT Patient was supposed to have follow up this week for celexa and she canceled? Is medication working? * Telephone Encounter - Teetee Burns CMA - 03/15/2024 8:37 AM EDT Per the cancellation note she did not start the med until 03/16/24 documented in this encounter Plan of Treatment Upcoming Encounters Date Type Department Care Team (Late st Contact Info) Description 05/07/2025 10:30 AM EST Office Visit [facility] [address] [place] [address] Nemo Benjamin APRN-CNP [address] [place] [id number] documented as of this encounter Visit Diagnoses Not on filedocumented in this encounter Additional Health Concerns Assessment Noted Time PHQ-9 Depression Total Score: 0 08/14/19 3:46 PM EDT A Body Mass Index follow-up plan has been documented for the patient 02/19/2024 2:15 PM EDT documented as of this encounter Care Teams Production Bow Maker Relationship Specialty Start Date End Date Nemo Benjamin APRN-CNP [address] [place] [address] PCP - General Family Medicine 02/08/21 documented as of this encounter
--- OUTSIDE RECORDS SUMMARY | 2024-12-09 15:07 | XMS_ITS | Encounter Summary ---
Author Organization [employer] [facility] tem Address [id number] [address] [place] [address] Care Team Providers Care Gymnastic Coach Name Role Phone Nemo Benjamin APRN-ARIANNA Primary Care Provide r Encounter Details Date Type Department Care Team (Late st Contact Info) Description 08/30/2022 Orders Only [facility] - Family Medicine [address] [place] [address] Jeff Sepulveda, [address] [place] [address] Special screening for malignant neoplasm of colon (Primary Dx) Social History Tobacco Use Types [...] often do you attend chur ch or nondenominational services? Patient declined 06/12/2021 Do you belong to any clubs o r organizations such as episcopalian groups, unions, fraternal or athletic groups, or [...] Answer Date Recorded Total Score 0 08/13/2022 [facility] - Occupational [...] Recorded Do you need help finding a [email or web address] career center and/or a training program? No [...] have Coronavirus / COVID-19? No / Unsure 08/20/2022 2:54 PM EDT documented as of this encounter Plan of Treatment Upcoming Encounters Date Type Department Care Team (Late st Contact Info) Description 05/07/2025 10:30 AM EST Office Visit [facility] [address] [place] [phone] Nemo Benjamin APRN-CNP [address] [place] [address] documented as of this encounter Visit Diagnoses Diagnosis Special screening for malignant neoplasm of colon- Primary Special screening for malignant neoplasms, colon documented in this encounter Additional Health Concerns Assessment Noted Time PHQ-9 Depression Total Score: 0 08/14/19 23 3:46 PM EDT A Body Mass Index follow-up plan has been documented for the patient 06/26/2022 2:54 PM EST documented as of this encounter Care Teams Gymnastic Coach Relationship Specialty Start Date End Date Nemo Benjamin APRN-CNP [address] [place] [address] PCP - General Family Medicine 02/08/21 documented as of this encounter
--- OUTSIDE RECORDS SUMMARY | 2024-12-09 15:07 | XMS_ITS | Encounter Summary ---
Author Organization [facility] Address [address] [place] [address] Care Team Providers Care Dealer Accounts Investigator Name Role Phone Jonathan Cornejo MD Primary Care Provider + [phone] Inocencio Scales DO Unavailable Encounter Details Date Type Department Care Team (Late st Contact Info) Description 03/20/2023 Clinisync Result Encounter [facility] External Department Unsolicited Inocencio Scales DO [address], [facility]11 Social History Tobacco Use Types Packs/Day Years Used Date Smoking Tobacco: Never Assessed Comments Yes Sex and Gender Information Value Date Recorded Sex Assigned at Not on file Legal Sex Female 7:12 PM EDT Gender Identity Not on file Sexual Orientation Not on file documented as of this encounter Plan of Treatment Upcoming Encounters Date Type Department Care Team ([facility] Contact Info) Description 12/13/2025 11:00 AM EDT Procedure Visit [facility] BCP OB [address] [place] [phone] Ijeoma [place] PA [address] [facility] [address] [place], [facility]11 documented as of this encounter Procedures Procedure Name Priority Date/Time Associated Diagnosis Comments US OB CERVICAL LENGTH 03/20/2023 9:05 PM EDT documented in this encounter Results * US OB CERVICAL LENGTH (03/20/2023 9:05 PM EDT) Anatomical Region Laterality Modality Other 03/20/2023 9:05 PM EDT Narrative 12/23/2023 8:27 AM EDT [address] [address] Ultrasound Report Signed with Alvina Patient: JAMES SCOTT MR#: [id number] : 1995 Acct:[id number] Age/Sex: 28 / F ADM Date: 03/20/23 Loc: US Attending Dr: Inocencio Scales D.O. Ordering Physician: Inocencio Scales D.O. Date of Service: 03/20/23 Procedure(s): US OB cervical length Accession Number(s): [id number] cc: Inocencio Scales D.O.; Physician,Non-Staff MVeronica ADDENDUM [address] [address] Patient Name: JAMES SCOTT MRN: [id number] date: 1995 Sex: F Assigned Patient Location: US Current Patient Location: US Accession/Order Number: [id number] Exam Date: 03/20/2023 08:43 Report Date: 03/20/2023 21:08 At the request of: INOCENCIO SCALES Procedure: US OB cervical length Begin Addendum #1 ANATOMY: Normal Structures -cerebellum, [...] By: DD/ TD/TT: / ADDENDUM US/US OB cervical length IMPRESSION: 1. Single live intrauterine with growth detailed above. 2. Estimated weight is at 95th percentile. Electronically authenticated by: TAMAR HEREDIA Date: 03/20/2023 21:08 Addendum Dictated By: Tamar Heredia M.D. Addendum Signed By: <Electronically signed by Tamar Heredia M.D.> 12/23/23826 Addendum Cosigned By: DD/ TD/TT: / [place] [id number] Patient Name: JAMES SCOTT MRN: [id number] date: 1995 Sex: F Assigned Patient Location: Current Patient Location: Accession/Order Number: [id number] Exam Date: 03/20/2023 08:43 Report Date: 03/20/2023 [...] M.D. Signed By: 03/20/232107 DD/ 04 TD/TT: Salesforce Administrator: Procedure Note Radiology, Radiologist, MD - 12/23/2023 [place] [address] Ultrasound Report Signed with Alvina Patient: JAMES SCOTT JMR#: [id number] : 1995Acct:[id number] Age/Sex: 28 / FADM Date: 03/20/23 Loc: US Attending Dr: Inocencio Scales D.O. Ordering Physician: Inocencio Scales D.O. Date of Service: 03/20/23 Procedure(s): US OB cervical length Accession Number(s): [id number] cc: Inocencio Scales D.O.; Physician,Non-Staff Ila ADDENDUM The [address] [address] Patient Name: JAMES SCOTT MRN: [id number] date: 1995 Sex: F Assigned Patient Location: US Current Patient Location: US Accession/Order Number: [id number] Exam Date: 03/20/2023 08:43 Report Date: 03/20/2023 21:08 At the request of: INOCENCIO SCALES Procedure: US OB cervical length Begin Addendum #1 ANATOMY: Normal Structures -cerebellum, [...] By: DD/ TD/TT: / ADDENDUM US/US OB cervical length IMPRESSION: 1. Single live intrauterine with growth detailed above. 2. Estimated weight is at 95th percentile. Electronically authenticated by: TAMAR HEREDIA Date: 03/20/2023 21:08 Addendum Dictated By: Tamar Heredia M.D. Addendum Signed By: <Electronically signed by Tamar Heredia M.D.> 12/23/23826 Addendum Cosigned By: DD/ TD/TT: / [place] [address] Patient Name: JAMES SCOTT MRN: [facility]:[id number] date: 1995 Sex: F Assigned Patient Location: US Current Patient Location: Accession/Order Number: [id number] Exam Date: 03/20/2023 08:43 Report Date: 03/20/2023 [...] Heredia M.D. Signed By:03/20/232107 DD/ 04 TD/TT: Salesforce Administrator: us Inocencio Scales DO [facility] Final Result documented in this encounter Visit Diagnoses Not on filedocumented in this encounter Care Teams Dealer Accounts Investigator Relationship Specialty Start Date End Date Jonathan Cornejo MD PCP - General Family Medicine 04/04/23 Inocencio Scales DO [address] [place] [address] [place] [address] PCP - [facility] 11/25/23 documented as of this encounter
--- OUTSIDE RECORDS SUMMARY | 2024-12-09 15:07 | XMS_ITS | Patient Health Record ---
Author Organization [facility] Address [address] [place], [place] [address] Care Team Providers Care Crts Name Role Phone Duong Renae Unavailable [phone] Allergies No Known Allergies Reason For Referral No Information Medications Medication SIG (Take, Route, Frequency, Duration) Notes Start Date End Date Status CeleXA Active Pepcid Active Social History Tobacco Use: Social History Observation Description Date Details (start date - stop date) Current Smoker NA - NA Sex Assigned At : Social History Observation Description Sex Assigned At Female Tobacco Control (Standard) Question Answer Notes Tobacco use: Current smoker How often do you smoke cigarettes? Every day Section Notes: Nutrition counseling focusin g on a low sodium and low sugar diet discussed with the patient, as well as appropriate weekly exercise and increased activity as tolerated to work towards a more optimal body mass index for improved overall health. Nutrition counseling focusin g on a low sodium and low sugar diet discussed with the patient, as well as appropriate weekly exercise and increased activity as tolerated to work towards a more optimal body mass index for improved overall health. Vital Signs Heart Rate 81 /min 06/16/2024 Height-cm 165.1 cm 06/16/2024 Blood pressure diastolic 66 mm Hg 06/16/2024 Weight-kg 80.29 kg 06/16/2024 Height 65 in 06/16/2024 Blood pressure systolic 107 mm Hg 06/16/2024 Weight 177 lbs 06/16/2024 BMI 29.45 kg/m2 06/16/2024 Encounters Encounter Location Date Provider Diagnosis [facility] Main [address] [place], [place] [id number] 02/26/2024 Renae Watters Encounter for scre ening for dental disorders Z13.84 ; Dental caries into dentine K02.62 and Encounter for dental examination and cleaning with abnormal findings Z01.21 Dental Main [address] [place], [place] [id number] 03/05/2024 Renae Watters Encounter for dent al examination and cleaning with abnormal findings Z01.21 and Dental caries into dentine K02.62 Dental Main [address] [place], [place] [id number] 06/16/2024 Renae Watters Dental caries into dentine K02.62 Assessments Encounter Date Diagnosis (ICD Code) Assessment Notes Treatment Notes Treatment Clinical Notes Section Notes 02/26/2024 Encounter for screening for dental disorders (ICD-10 - Z13.84) 03/05/2024 Encounter for dental examination and cleaning with abnormal findings (ICD-10 - Z01.21) 06/16/2024 Dental caries into dentine (ICD-10 - K02.62) 03/05/2024 Dental caries into dentine (ICD-10 - K02.62) 02/26/2024 Dental caries into dentine (ICD-10 - K02.62) 02/26/2024 Encounter for dental examination and cleaning with abnormal findings (ICD-10 - Z01.21) Plan Of Treatment Next Appt Details Provider Name:Renae Malik epstein, 01/26/2025 09:30:00 AM, [address] [place], [place], [id number], Insurance Providers Payer Name Payer Address Payer Phone Subscriber Number Group Number Insured Name Patient Relationship to Insured Coverage Start Date Coverage End Date [employer]ourc e [employer] [facility] [address] [place] [address] [id number] Angi Marshall Self - patient is the insured 4 DMedicaid CFC after [employer]urce [employer] [address] [place], [place] [id number] Angi Marshall Self - patient is the insured 4
--- OUTSIDE RECORDS SUMMARY | 2024-12-09 15:07 | XMS_ITS | Encounter Summary ---
Author Organization [facility] Address [address] [place] [address] Care Team Providers Care Dentist Attendant Name Role Phone Jonathan Cornejo MD Primary Care Provider [phone] Rodrick Scales DO Unavailable Encounter Details Date Type Department Care Team ([facility] Contact Info) Description 07/03/2023 Abstract [facility] BCP OB [address] [facility] [place] [address] Rodrick Scales DO [address] [facility] [address] Vernon Cox, [facility] Social History Tobacco Use Types Packs/Day Years Used Date Smoking Tobacco: Never Assessed Comments Yes Sex and Gender Information Value Date Recorded Sex Assigned at Not on file Legal Sex Female 7:12 PM EDT Gender Identity Not on file Sexual Orientation Not on file documented as of this encounter Plan of Treatment Upcoming Encounters Date Type Department Care Team ([facility] Contact Info) Description 12/13/2025 11:00 AM EDT Procedure Visit [facility] B[facility] OB [address] [facility] [place] [place] [address] Ijeoma Montana PA [address] [facility] [place] [address] documented as of this encounter Visit Diagnoses Not on filedocumented in this encounter Care Teams Dentist Attendant Relationship Specialty Start Date End Date Jonathan Cornejo MD PCP - General Family Medicine 04/04/23 Rodrick Scales DO [address] [place] [address] [place], [facility] PCP - [facility] 11/25/23 documented as of this encounter
--- OUTSIDE RECORDS SUMMARY | 2024-12-09 15:07 | XMS_ITS | Encounter Summary ---
Author Organization [facility] Address [address] [facility] [place] [address] Care Team Providers Care Aircraft Dispatcher Name Role Phone Jonathan Cornejo MD Primary Care Provider + [phone] Rodrick Scales DO Unavailable Encounter Details Date Type Department Care Team ([facility] Contact Info) Description 12/09/2024 Bamboo flowsheet [facility] BCP OB [address] [facility] [place] [address] Ijeoma Montana PA [address] [place] [address] [address] [place] [id number] Social History Tobacco Use Types Packs/Day Years Used Date Smoking Tobacco: Never Assessed Comments No Sex and Gender Information Value Date Recorded Sex Assigned at Not on file Legal Sex Female 7:12 PM EDT Gender Identity Not on file Sexual Orientation Not on file documented as of this encounter Plan of Treatment Upcoming Encounters Date Type Department Care Team ([facility] Contact Info) Description 12/13/2025 11:00 AM EDT Procedure Visit [facility] BCP OB [address] [facility] [place] [address] Ijeoma Montana PA [address] [place] [address] [address] [place] [id number] documented as of this encounter Visit Diagnoses Not on filedocumented in this encounter Care Teams Aircraft Dispatcher Relationship Specialty Start Date End Date Jonathan Cornejo MD PCP - General Family Medicine 04/04/23 Rodrick Scales DO [address] [place], [place] [address]lucian Guy [place] [id number] PCP - [facility] 11/25/23 documented as of this encounter
--- OUTSIDE RECORDS SUMMARY | 2024-12-09 15:07 | XMS_ITS | Patient Health Record ---
Author Organization [facility] Address [address] [place] [address] Care Team Providers Care Medical Insurance Claims Processor Name Role Phone Bryn Rivers Ryan Primary Care Provider Reason For Referral No Information Medications Medication SIG (Take, Route, Frequency, Duration) Notes Start Date End Date Status Biotin 10 MG 1 tablet Orally Once a day; Duration: 30 day(s) Active Plan Of Treatment No Information Insurance Providers Payer Name Payer Address Payer Phone Subscriber Number Group Number Insured Name Patient Relationship to Insured Coverage Start Date Coverage End Date [facility] [address] [place] [phone] [id number] JAMES SCOTT Self - patient is the insured Medical (General) History Surgical History Surgery Date(Month/Year) wisdom teeth Hospitalization History Reason Date(Month/Year) meningitis age 8 or 9
--- OUTSIDE RECORDS SUMMARY | 2024-12-09 15:07 | XMS_ITS | Encounter Summary ---
Author Organization [facility] Address [address] [place] [address] Care Team Providers Care Horticultural Worker Name Role Phone Bina Cornejo MD Primary Care Provider + [phone] Inocencio Scales DO Unavailable Encounter Details Date Type Department Care Team (Late st Contact Info) Description 06/21/2023 Clinisync Result Encounter [facility] External Department Unsolicited Inocencio Scales DO [address], [facility] Social History Tobacco Use Types Packs/Day [...] Visit [facility] OB [address] [place] [id number] Ijeoma [place] PA [address] [place], [facility] documented as of this encounter Procedures Procedure Name Priority Date/Time Associated Diagnosis Comments OB GROWTH 06/21/2023 11:57 AM EST documented in this encounter Results * US OB GROWTH (06/21/2023 11:57 AM EST) Anatomical Region Laterality Modality Other 06/21/2023 11:5 7 AM EST Narrative 06/21/2023 11:59 AM EST [address] [address] Ultrasound Report Signed Patient: JAMES SCOTT MR#: [id number] : 1995 Acct:[id number] Age/Sex: 28 / F ADM Date: 06/21/23 Loc: INF Attending Dr: Inocencio Scales D.O. Ordering Physician: Inocencio Scales D.O. Date of Service: 06/21/23 Procedure(s): US OB growth Accession Number(s): [id number] cc: Inocencio Scales D.O.; Physician,Non-Staff [place] [address] Patient Name: JAMES SCOTT MRN: [id number] date: 1995 Sex: F Assigned Patient Location: INF Current Patient Location: INF Accession/Order Number: [id number] Exam Date: 06/21/2023 10:40 Report Date: 06/21/2023 11:57 At the request of: INOCENCIO SCALES Procedure: US OB growth EXAMINATION: US OB growth HISTORY: EXCESSIVE GROWTH O36.60X0 COMPARISON: No relevant comparison available. FINDINGS: Heart Rate: 132.0 bpm Amniotic Fluid Volume: 20.2 cm Number: 1.0 Position: Cephalic presentation, longitudinal lie Maximum Vertical Pocket: 9.2 cm cm 3.3 cm cm 3.7 cm cm 4.0 cm cm BIOMETRY: BPD: 9.3 cm cm; 37 weeks 6 days; >97% HC: 34.9 cmcm; 40 weeks 4 days , >97% AC: 33.8 cm cm; 37 weeks 5 days, > 97% FL: 6.6 cm cm; 34 weeks 1 days; 38.8 % % EFW: 3135.2 grams, 6 lbs. 15 oz., >97% FL/AC: 19.6 FL/BPD: 71.0 HC/AC: 1.0 GESTATIONAL AGE: Age by EDC: 34 weeks 1 days RON by EDC: 08/01/2023 Age by US: 37 weeks 4 days RON by US: 07/08/2023 US/US OB growth IMPRESSION: Large for gestational age Electronically authenticated by: BINA CAVAZOS Date: 06/21/2023 11:57 Dictated By: Bina Cavazos M.D. Signed By: 06/21/23 1159 DD/ 1157 TD/TT: Metal Engraver: Procedure Note Radiology, Radiologist, MD - 06/21/2023 [place] [address] Ultrasound Report Signed Patient: JAMES SCOTT JMR#: [id number] : 1995Acct:[id number] Age/Sex: 28 / FADM Date: 06/21/23 Loc: INF Attending Dr: Inocencio Scales D.O. Ordering Physician: Inocencio Scales D.O. Date of Service: 06/21/23 Procedure(s): US OB growth Accession Number(s): [id number] cc: Inocencio Scales D.O.; Physician,Non-Staff [place] [id number] Patient Name: JAMES SCOTT MRN: [id number] date: 1995 Sex: F Assigned Patient [facility]: [facility] Current Patient Location: INF Accession/Order Number: [id number] Exam Date: 06/21/2023 10:40 Report Date: 06/21/2023 11:57 At the request of: INOCENCIO SCALES Procedure: US OB growth EXAMINATION: US OB growth HISTORY: EXCESSIVE GROWTH O36.60X0 COMPARISON: No relevant comparison available. FINDINGS: Heart Rate: 132.0 bpm Amniotic Fluid Volume: 20.2 cm Number: 1.0 Position: Cephalic presentation, longitudinal lie Maximum Vertical Pocket: 9.2 cm cm 3.3 cm cm 3.7 cm cm 4.0 cm cm BIOMETRY: BPD: 9.3 cm cm; 37 weeks 6 days; >97% HC: 34.9 cmcm; 40 weeks 4 days , >97% AC: 33.8 cm cm; 37 weeks 5 days, > 97% FL: 6.6 cm cm; 34 weeks 1 days; 38.8 % % EFW: 3135.2 grams, 6 lbs. 15 oz., >97% FL/AC: 19.6 FL/BPD: 71.0 HC/AC: 1.0 GESTATIONAL AGE: Age by EDC: 34 weeks 1 days RON by EDC: 08/01/2023 Age by US: 37 weeks 4 days RON by US: 07/08/2023 US/US OB growth IMPRESSION: Large for gestational age Electronically authenticated by: BINA CAVAZOS Date: 06/21/2023 11:57 Dictated By: Bina Cavazos M.D. Signed By:06/21/23 1159 DD/ 1157 TD/TT: Metal Engraver: Inocencio Scales DO [facility] Final Result documented in this encounter Visit Diagnoses Not on filedocumented in this encounter Care Teams Horticultural Worker Relationship Specialty Start Date End Date Bina Cornejo MD PCP - General Family Medicine 04/04/23 Inocencio Scales DO [address] [place] [address] [place] [address] PCP - [facility] 11/25/23 documented as of this encounter
--- OUTSIDE RECORDS SUMMARY | 2024-12-09 15:07 | XMS_ITS | Encounter Summary ---
Author Organization [facility] tem Address [id number] [address] [place] [address] Care Team Providers Care Senior Radiation Protection Technician Name Role Phone Nemo Benjamin APRN-REHABILITATION CLERK Primary Care Provide r Encounter Details Date Type Department Care Team (Late st Contact Info) Description 09/03/2022 Orders Only [facility] - Interventional Radiology [address] [place] [address] Eileen Salazar MD [address] [place] [address] Social History Tobacco Use Types Packs/Day Years [...] often do you attend chur ch or christianity services? Patient declined 06/12/2021 Do you belong to any clubs o r organizations such as druze groups, unions, fraternal or athletic groups, or [...] Answer Date Recorded Total Score 0 08/13/2022 [facility] of Occupat ional Health - Occupational Stress [...] Recorded Do you need help finding a [facility] and/or a training program? No [...] Office Visit [facility] [address] [place] [address] Nemo Benjamin APRN-CNP [address] [place] [address] documented as of this encounter Visit Diagnoses Not on filedocumented in this encounter Additional Health Concerns Assessment Noted Time PHQ-9 Depression Total Score: 0 08/14/19 23 3:46 PM EDT A Body Mass Index follow-up plan has been documented for the patient 06/26/2022 2:54 PM EST documented as of this encounter Care Teams Senior Radiation Protection Technician Relationship Specialty Start Date End Date Nemo Benjamin APRN-REHABILITATION CLERK [address] [place], [place] [phone] PCP - General Family Medicine 02/08/21 documented as of this encounter
--- OUTSIDE RECORDS SUMMARY | 2024-12-09 15:07 | XMS_ITS | Encounter Summary ---
Author Organization [facility] Address [id number] [address] [place] [address] Care Team Providers Care Academic Affairs Dean Name Role Phone Nemo Benjamin Primary Care Provide r Reason for Visit * Reason Comments Med Refill Encounter Details Date Type Department Care Team (Late st Contact Info) Description 07/07/2021 Refill [facility] [address] [place] [address] Nemo Benjamin APRN-CNP [address] [place], [place] [id number] Social History Tobacco Use Types Packs/Day Years [...] often do you attend chur ch or congregational services? Patient declined 06/12/2021 Do you belong to any clubs o r organizations such as alevism groups, unions, fraternal or athletic groups, or [...] PHQ-2 Answer Date Recorded Total Score 0 07/06/2021 [facility] of Occupat ional Health - Occupational Stress [...] a purpose and direction in my life. Stromoses gly Agree 06/12/2021 Education Answer Date Recorded [...] have Coronavirus / COVID-19? No / Unsure 07/06/2021 9:25 AM EST documented as of this encounter Plan of Treatment Upcoming Encounters Date Type Department Care Team (Late st Contact Info) Description 05/07/2025 10:30 AM EST Office Visit [facility] [address] [place] [address] Nemo Benjamin APRN-CNP [address] [place] [address] documented as of this encounter Visit Diagnoses Not on filedocumented in this encounter Additional Health Concerns Assessment Noted Time PHQ-9 Depression Total Score: 0 07/06/19 22 9:00 AM EST A Body Mass Index follow-up plan has been documented for the patient 07/06/2021 9:47 AM EST documented as of this encounter Care Teams Academic Affairs Dean Relationship Specialty Start Date End Date Nemo Benjamin APRN-CNP [address] [place] [address] PCP - General Family Medicine 02/08/21 documented as of this encounter
--- OUTSIDE RECORDS SUMMARY | 2024-12-09 15:07 | XMS_ITS | Encounter Summary ---
Author Organization [facility] Address [id number] [address] [place] [address] Care Team Providers Care Fire Fighter [employer] Name Role Phone Nemo Benjamin Primary Care Provide r Reason for Visit * Reason Onset Date Comments Med Refill 05/21/2022 Encounter Details Date Type Department Care Team (Late st Contact Info) Description 05/21/2022 Refill [facility] [address] [place] [phone] Nemo Benjamin APRN-CNP [address] [place] [address] Social History Tobacco Use Types Packs/Day Years [...] often do you attend chur ch or anglican services? Patient declined 06/12/2021 Do you belong to any clubs o r organizations such as sabianism groups, unions, fraternal or athletic groups, or [...] Answer Date Recorded Total Score 0 04/30/2022 [facility] of Occupat ional Health - Occupational Stress [...] Recorded Do you need help finding a [facility] career [facility] and/or a training program? No [...] AM EST documented as of this encounter Miscellaneous Notes * Telephone Encounter - Robina Rangel CMA - 05/21/2022 9:40 AM EST Patient requesting refill of celexa to [facility] * Telephone Encounter - SAI Sarabia - 05/21/2022 9:40 AM EST It looks like I sent 90 days and one refill three weeks ago * Telephone Encounter - Robina Rangel CMA - 05/21/2022 9:40 AM EST LM for patient that Rx was sent 04/30/22 documented in this encounter Plan of Treatment Upcoming Encounters Date Type Department Care Team (Late Contact Info) Description 05/07/2025 10:30 AM EST Office Visit [facility] [address] [place] [address] Nemo Benjamin APRN-CNP [address] [place] [address] documented as of this encounter Visit Diagnoses Not on filedocumented in this encounter Additional Health Concerns Assessment Noted Time PHQ-9 Depression Total Score: 0 04/30/20 3:24 PM EST A Body Mass Index follow-up plan has been documented for the patient 04/30/2022 4:19 PM EST documented as of this encounter Care Teams [employer] Relationship Specialty Start Date End Date Nemo Benjamin APRN-MICROBIOLOGY SOIL SCIENTIST [address] [place] [address] PCP - General Family Medicine 02/08/21 documented as of this encounter
[2024-12-15 10:08] LABS: Age Gdln ACOG Testing Note (.); IGP, Aptima HPV, rfx 16/18,45 Note (.)
== END 2024-12-09 15:04 | disposition home or self-care (01) ==
LOC: LAB 15:03
PROVIDERS: Visit Provider Physician Assistant
DX: Z01.419 Encounter for gynecological examination (general) (routine) without abnormal findings (principal)
CPT/HCPCS: 87624; 88175